=== PATIENT | female | born 1950 | race Caucasian/White ===

== ENCOUNTER 2018-11-02 19:43 | Emergency (ER) | payer MEDICARE, OTHER ==
--- NOTE | 2018-11-02 20:03 | ERPHSYRPT ---
- History of Present Illness Time Seen by Provider: 11/02/18 20:00 Source: patient, family Exam Limitations: no limitations Physician History: pt tripped on rug and struck right face on door facing no LOC no blood thinners ; no neuro deficits; mild lac at right cheek Occurred: just prior to arrival Severity: moderate Head Injury Location: frontal Method of Injury: fell Loss of Consciousness: no loss of consciousness Associated Symptoms: denies symptoms Allergies/Adverse Reactions: latex Allergy (Mild, Verified 11/02/18 20:03) redness levofloxacin [From Levaquin] Adverse Reaction (Mild, Verified 11/02/18 20:03) Itching Home Medications: Aspirin 81 mg PO DAILY 04/19/12 [History] Metoprolol Tartrate 04/19/12 [History] Multivitamin 04/19/12 [History] Novolog 04/19/12 [History] Hx Tetanus, Diphtheria Vaccination/Date Given: No Hx Influenza Vaccination/Date Given: No Hx Pneumococcal Vaccination/Date Given: No - Review of Systems Constitutional: No Fever, No Chills Eyes: No Symptoms Ears, Nose, & Throat: No Symptoms Respiratory: No Cough, No Dyspnea Cardiac: No Chest Pain, No Edema, No Syncope Abdominal/Gastrointestinal: No Abdominal Pain, No Nausea, No Vomiting, No Diarrhea Genitourinary Symptoms: No Dysuria Musculoskeletal: No Back Pain, No Neck Pain Skin: Other (lac right cheek), No Rash Neurological: Headache, No Dizziness, No Focal Weakness, No Sensory Changes Psychological: No Symptoms Endocrine: No Symptoms All Other Systems: Reviewed and Negative - Past Medical History Pertinent Past Medical History: Yes Neurological History: No Pertinent History ENT History: No Pertinent History Cardiac History: Coronary Artery Disease, Hypertension Respiratory History: No Pertinent History, Pneumonia Endocrine Medical History: Diabetes Type II, Hypothyroidism Musculoskeletal History: Arthritis, Osteoarthritis GI Medical History: Diverticulosis Psycho-Social History: Depression Female Reproductive Disorders: Other - Past Surgical History Past Surgical History: Yes Gastrointestinal: Colon Resection, Hernia Repair Musculoskeletal: Orthopedic Surgery Female Surgical History: Other - Social History Smoking Status: Never smoker Exposure to second hand smoke: No Drug Use: none Patient Lives Alone: No - Nursing Vital Signs Nursing Vital Signs: Initial Vital Signs Temperature 97.2 F 11/02/18 19:52 Pulse Rate 77 11/02/18 19:52 Respiratory Rate 16 11/02/18 19:52 Blood Pressure 124/42 11/02/18 19:52 O2 Sat by Pulse Oximetry 99 11/02/18 19:52 Pain Scale Pain Intensity 4 - Roe Coma Score Best Eye Response (Crosby): (4) open spontaneously Best Verbal Response (Roe): (5) oriented Best Motor Response (Roe): (6) obeys commands Crosby Total: 15 - Physical Exam General Appearance: no apparent distress, alert Head Injury: lacerations (right cheek) Eye Exam: bilateral eye: PERRL, EOMI ENT Exam: airway nml Neck Exam: trachea midline, full range of motion, normal alignment, paraspinous muscle tender, No focal neuro deficit, No mid-line tenderness Cardiovascular/Respiratory Exam: chest non-tender, normal breath sounds, regular rate/rhythm Gastrointestinal/Abdominal Exam: soft, non tender, no distention Pelvic Exam: deferred Rectal Exam: deferred Back Exam: normal inspection, No vertebral tenderness Extremity Exam: non-tender, normal range of motion, normal inspection Mental Status Exam: alert, oriented x 3, cooperative Motor/Sensory Exam: no motor deficit, no sensory deficit, CN II-XII intact Skin Exam: normal color, warm, dry, No rash Procedures - Laceration/Wound Repair Right Cheek Wound Location: Right, face Wound Length (cm): 2 Wound's Depth, Shape: superficial, linear Wound Explored: no foreign body noted Irrigated: Yes Hibiclens Prep: Yes Anesthesia: local, 1% Lidocaine Volume Anesthetic (ccs): 2 Wound Debrided: minimal Wound Repaired With: sutures Suture Size/Type: 6-0, prolene Number of Sutures: 4 Layer Closure?: No Sterile Dressing Applied?: Yes Splint Applied?: No Sling Applied?: No - Course Nursing assessment & vital signs reviewed: Yes Ordered Tests: Active Orders 24 hr Category Date Time Status CERVICAL SPINE WO CONTRAST [CT] Stat Exams 11/02/18 20:04 Taken FACIAL BONES WO CONTRAST [CT] Stat Exams 11/02/18 20:04 Taken HEAD WITHOUT CONTRAST [CT] Stat Exams 11/02/18 20:03 Taken Medication Summary Discontinued Medications Generic Name Dose Route Start Last Admin Trade Name Freq PRN Reason Stop Dose Admin Diphtheria/Tetanus/Acell Pertussis 0.5 ml 11/02/18 20:05 11/02/18 20:44 Adacel Vial IM 11/02/18 20:06 Not Given .ONCE ONE - Progress Progress: improved, re-examined Progress Note: 11/02/18 22:12 pt has no symptoms after observatin in ER, discussed that there still could be evloving injury even with neg CT and pt prefers outpt f/u to admission/obs. Counseled pt/family regarding: diagnosis, need for follow-up, rad results - Departure Departure Disposition: Home Clinical Impression: concussion with lac, contusion right face Condition: Good Critical Care Time: No Referrals: CARMINA ANDERSON MD [Primary Care Provider] - Instructions: Contusion (DC), Concussion, Adult (DC), Laceration Repair Additional Instructions: even though the CT was OK there can still be brain swelling in the first day or so ; therefore return if any symptoms of concern. see Dr to replace stitches with steristrips in 5 days , return meantime if any concerns. apply antibiotic ointment daily. Prescriptions: Mupirocin [Bactroban OINTMENT] 22 gm TP DAILY #1 tube
[2018-11-02] MEDS ORDERED: Adacel Vial IM ONE (20:05)
[2018-11-02 20:46] VITALS: BP 124/75; PULSE 74; O2SAT 96
--- NOTE | 2018-11-03 07:21 | XRAY ---
Indication: Right face injury following fall. Multiple contiguous axial images obtained through the head without contrast. Comparison: None Age-appropriate global atrophy and mild periventricular degenerative micro-ischemia bilaterally. No acute intracranial hemorrhage, abnormal extra-axial fluid collection, or mass effect. Fourth ventricle is midline without hydrocephalus. Bony calvarium intact. Mild anterior right temporal scalp hematoma. Impression: Right temporal scalp hematoma. Nonacute senile brain. Comment: Preliminary interpretation was made by [facility]. No discrepancy. CTDI 47.12
--- NOTE | 2018-11-03 07:26 | XRAY ---
Indication: Right face injury following fall. Multiple contiguous axial images obtained through the facial bones. Sagittal and coronal reformatted images obtained. Comparison: None There are multiple bilateral dental amalgams producing beam artifact limiting these levels. Moderate right facial and lesser degree right temporal soft tissue swelling. No acute fracture, suspicious bone lesions, or radiopaque foreign body. Orbits including roof, briceno, and floors intact. Paranasal sinuses and nasal passages are clear. Mild nasal septal deviation to the right. Visualized noncontrasted soft tissues unremarkable. CT head and CT cervical spine reported separately. Impression: Right face and right temporal soft tissue swelling. Negative acute fracture. Comment: Preliminary interpretation was made by [facility]. No discrepancy. CTDI 59.47
--- NOTE | 2018-11-03 07:30 | XRAY ---
Indication: Neck pain following fall. Multiple contiguous axial images obtained through the cervical spine. Sagittal and coronal reformatted images obtained. Comparison: None Axial images negative for acute fracture, suspicious bony lesions, or spinal canal stenosis. Mild/moderate multilevel anterior and posterior endplate spurring. Also mild atlantoaxial degenerative arthropathy and mild multilevel bilateral degenerative facet hypertrophy. Sagittal and coronal reformatted images demonstrate normal alignment. Mild/moderate C4-C7 disc space narrowing. No acute compression fracture, subluxation, or jump facet. Normal appearing craniocervical junction. Visualized noncontrasted soft tissues including lung apices unremarkable. Impression: 1. Negative acute fracture/subluxation. 2. Multilevel degenerative changes. Comment: Preliminary interpretation was made by [facility]. No discrepancy. CTDI 74.18
== END 2018-11-02 22:26 | disposition home or self-care (01) ==
LOC: ED 19:43
DX: S06.0X0A Concussion without loss of consciousness, initial encounter (principal); W01.198A Fall on same level from slipping, tripping and stumbling with subsequent striking against other object, initial encounter; S01.411A Laceration without foreign body of right cheek and temporomandibular area, initial encounter; I25.10 Atherosclerotic heart disease of native coronary artery without angina pectoris; I10 Essential (primary) hypertension; E11.9 Type 2 diabetes mellitus without complications; E03.9 Hypothyroidism, unspecified; M19.90 Unspecified osteoarthritis, unspecified site; F32.9 Major depressive disorder, single episode, unspecified
CPT/HCPCS: 12011; 70450; 70486; 72125; 99284

== ENCOUNTER 2021-05-25 08:45 | Day surgery (SDC) | payer MEDICARE ==
[2012-04-19 21:09] VITALS: BP 117/60
[2021-05-25] MEDS ORDERED: LIDOCAINE HCL 2% 100 MG/5 ML IJ ONE (08:46)
[2021-05-25] MEDS ORDERED: Lactated Ringers 1,000 ML IV ONE (10:12)
[2021-05-25] MEDS ORDERED: DIPRIVAN 200 MG/20 ML IV ONE (10:21)
--- NOTE | 2021-05-25 11:36 | XRAY ---
Indication: Bilateral L4-S1 MBB. Intraoperative fluoroscopy provided for 13 seconds. Single digital spot image submitted for interpretation demonstrates posterior needle tips projecting over the expected left and right L4-S1 nerve roots. Correlate with intraoperative findings/report.
--- NOTE | 2021-05-25 11:43 | XRAY ---
13 seconds of fluoroscopy was used in surgery for a bilateral L4-S1 MBB.
== END 2021-05-25 10:50 | disposition home or self-care (01) ==
LOC: SDC-PAIN 08:45
PROVIDERS: ATTEND Psychiatry & Neurology Pain Medicine
DX: M47.816 Spondylosis without myelopathy or radiculopathy, lumbar region (principal); E11.9 Type 2 diabetes mellitus without complications; Z79.899 Other long term (current) drug therapy
CPT/HCPCS: 64493; 64494; 72020; 77002; 82947; J2704

== ENCOUNTER 2023-12-19 10:00 | Observation (INO) | payer MEDICARE ==
--- NOTE | 2023-12-19 10:12 | ERPHSYRPT ---
- History of Present Illness Time Seen by Provider: 12/19/23 10:00 Source: EMS Exam Limitations: clinical condition Physician History: Pt was brought in by EMS choking on a piece of pork. Pt unresponsive. Allergies/Adverse Reactions: latex Allergy (Mild, Verified 12/19/23 10:21) redness levofloxacin [From Levaquin] Adverse Reaction (Mild, Verified 12/19/23 10:21) Itching Home Medications: ARIPiprazole [Aripiprazole] 1 tab PO DAILY 12/19/23 [History] Chlorthalidone 1 tab PO DAILY 12/19/23 [History] Cholecalciferol (Vitd3)/Vit K2 [K2-D3 5000 90-125 Mcg Capsule] 1 tab PO DAILY 12/19/23 [History] Duloxetine HCl 1 tab PO DAILY 12/19/23 [History] Duloxetine HCl 30 mg [Cymbalta 30 MG Capsule] 1 tab PO DAILY 12/19/23 [History] Insulin Glargine,Hum.rec.anlog [Basaglar Kwikpen U-100] 70 units SQ DAILY [History] Insulin Lispro [Humalog] 30 units SQ AC 12/19/23 [History] Levothyroxine Sodium 1 tab PO DAILY 12/19/23 [History] Magnesium Oxide [Magnesium] 1 tab PO DAILY 12/19/23 [History] Meclizine HCl 25 mg [Antivert 25 mg] 1 tab PO TID PRN 12/19/23 [History] Oxybutynin Chloride [Oxybutynin Chloride ER] 1 tab PO DAILY 12/19/23 [History] PANTOPRAZOLE 40 mg Tablet [Protonix 40MG Tablet] 1 tab PO DAILY 12/19/23 [History] Semaglutide [Ozempic] 1.5 mg SQ WEEKLY 12/19/23 [History] Simvastatin 20Mg [Zocor 20Mg] 1 tab PO HS 12/19/23 [History] Verapamil HCl [Verapamil ER] 1 tab PO DAILY 12/19/23 [History] Hx Tetanus, Diphtheria Vaccination/Date Given: No Hx Influenza Vaccination/Date Given: No Hx Pneumococcal Vaccination/Date Given: No - Review of Systems All Other Systems: Unable due to condition - Past Medical History Pertinent Past Medical History: Yes Neurological History: TIA ENT History: No Pertinent History Cardiac History: Angina, High Cholesterol, Hypertension, Other Respiratory History: Sleep Apnea Endocrine Medical History: Diabetes Type II, Hypothyroidism, Other Musculoskeletal History: Osteoarthritis GI Medical History: Diverticulosis Psycho-Social History: Depression Female Reproductive Disorders: Other Other Medical History: depression, anxiety, GERD, Emily's, B TKR (09/2011 and 02/2012), heel spur removal (unsure of which side, 06/2011), cholecystectomy with complication of bowel fistula, abdominal hernia repair x7 - Past Surgical History Past Surgical History: Yes Gastrointestinal: Colon Resection, Hernia Repair Musculoskeletal: Orthopedic Surgery Female Surgical History: Other Other Surgical History: bilat total knee - Social History Smoking Status: Never smoker Exposure to second hand smoke: No Drug Use: none Patient Lives Alone: No - Nursing Vital Signs Nursing Vital Signs: Initial Vital Signs Temperature 97.5 F 12/19/23 10:00 Pulse Rate 147 H 12/19/23 10:00 Respiratory Rate 25 H 12/19/23 10:00 Blood Pressure 160/113 12/19/23 10:00 O2 Sat by Pulse Oximetry 94 L 12/19/23 10:00 Pain Scale Pain Intensity 5 - Physical Exam General Appearance: alert Eye Exam: PERRL/EOMI Ears, Nose, Throat Exam: pharyngeal erythema (mild; Foreign body in trachea.) Neck Exam: normal inspection Respiratory Exam: diminished breath sounds Cardiovascular/Chest Exam: tachycardia Abdominal/Gastrointestinal Exam: normal bowel sounds Extremity Exam: No pedal edema Peripheral Pulses Exam: dorsalis-pedis (R): 2+, dorsalis-pedis (L): 2+ Neurologic Exam: other (unresponsive) Skin Exam: mottled SpO2 Interpretation: O2 applied SpO2: 94 O2 Delivery: Non-rebreather Procedures - Additional Procedures Progress: Laryngoscope used with visualization of piece of meat with airway obstruction. Large piece of meat removed with suction and Zan forceps. After removal and NRB oxygen pt's color improved. - Course EKG Interpreted by Me: RATE (131), Left [employer] Deviation, Left Bundle Branch Block, Other (QTc = 470) - CT Exams Head CT Interpretation: Discussed w/radiologist (Again nonacute senile brain.) Chest CT Interpretation: Negative (Negative pulmonary embolus. No acute cardiopulmonary abnormalities. See rest of report.) Ordered Tests: Active Orders 24 hr Category Date Time Status Material Distributor STAT Care 12/19/23 10:13 Active EKG-ER Only STAT Care 12/19/23 10:11 Active EKG-ER Only STAT Care 12/19/23 14:16 Active IV Insertion STAT Care 12/19/23 10:11 Active NPO (ED) STAT Care 12/19/23 11:48 Active Oxygen-ED Only NON-REBREATHER 100% Care 12/19/23 10:11 Active POCT Glucose Check STAT Care 12/19/23 11:48 Active CHEST WITH CONTRAST [CT] Stat Exams 12/19/23 10:13 Completed HEAD WITHOUT CONTRAST [CT] Stat Exams 12/19/23 10:15 Completed AMYLASE Stat Lab 12/19/23 10:33 Completed BLOOD CULTURE Stat Lab 12/19/23 10:17 Received BMP Stat Lab 12/19/23 13:32 Completed CBC W DIFF Stat Lab 12/19/23 10:33 Completed CBC W DIFF Stat Lab 12/19/23 13:32 Results CMP Stat Lab 12/19/23 10:33 Completed CULTURE,SPUTUM Stat Lab 12/19/23 10:17 Ordered CULTURE,URINE Stat Lab 12/19/23 12:04 Received LIPASE Stat Lab 12/19/23 10:33 Completed Lactic Acid Stat Lab 12/19/23 10:11 Completed Lactic Acid Stat Lab 12/19/23 12:40 Completed MAGNESIUM Stat Lab 12/19/23 10:33 Completed Manual Differential NC Stat Lab 12/19/23 10:33 Completed Manual Differential NC Stat Lab 12/19/23 13:32 Results NT PRO BNPII Stat Lab 12/19/23 10:33 Completed POCT GLUCOSE Stat Lab 12/19/23 12:09 Completed Pathologist Review Stat Lab 12/19/23 13:32 Results TROPONIN Q4H Lab 12/19/23 10:33 Completed TROPONIN Q4H Lab 12/19/23 13:32 Completed TROPONIN Q4H Lab 12/19/23 18:15 Ordered UA W/RFX UR CULTURE Stat Lab 12/19/23 12:04 Completed VENOUS BLOOD GAS Stat Lab 12/19/23 10:13 Completed Medication Summary Discontinued Medications Generic Name Dose Route Start Last Admin Trade Name Freq PRN Reason Stop Dose Admin Sodium Chloride 1,000 mls @ 999 mls/hr 12/19/23 10:11 12/19/23 11:25 Sodium Chloride 0.9% 1000 Ml IV 12/19/23 11:11 Infused .Q1H1M STA Infusion Ceftriaxone Sodium 1 gm in 100 mls @ 200 mls/hr 12/19/23 10:11 12/19/23 11:16 Rocephin 1 Gm / 100 Ml Nacl IV 12/19/23 10:40 Infused STAT ONE Infusion Azithromycin 500 mg in 250 mls @ 250 mls/hr 12/19/23 10:11 12/19/23 13:08 Zithromax 500 Mg/ 250 Ml Nacl Premix IV 12/19/23 11:10 Infused STAT STA Infusion Sodium Chloride Confirm 12/19/23 10:17 Sodium Chloride 0.9% 1000 Ml Administered 12/19/23 10:18 Dose 1,000 mls @ ud .ROUTE .STK-MED ONE Ceftriaxone Sodium Confirm 12/19/23 10:17 Rocephin 1 Gm / 100 Ml Nacl Administered 12/19/23 10:18 Dose 1 gm in 100 mls @ ud IV .STK-MED ONE Sodium Chloride 1,000 mls @ 999 mls/hr 12/19/23 10:45 12/19/23 13:08 Sodium Chloride 0.9% 1000 Ml IV 12/19/23 11:45 Infused .Q1H1M STA Infusion Azithromycin Confirm 12/19/23 11:35 Zithromax 500 Mg/ 250 Ml Nacl Premix Administered 12/19/23 11:36 Dose 500 mg in 250 mls @ ud IV .STK-MED ONE Sodium Chloride Confirm 12/19/23 11:35 Sodium Chloride 0.9% 1000 Ml Administered 12/19/23 11:36 Dose 1,000 mls @ ud .ROUTE .STK-MED ONE Insulin Human Regular 10 unit 12/19/23 10:35 12/19/23 10:58 Insulin Regular, Human 1 Unit IV 12/19/23 10:36 10 unit STAT ONE Administration Insulin Human Regular Confirm 12/19/23 10:54 Insulin Regular, Human 1 Unit Administered 12/19/23 10:55 Dose 10 unit .ROUTE .STK-MED ONE Insulin Human Regular 5 unit 12/19/23 12:10 12/19/23 12:17 Insulin Regular, Human 1 Unit IV 12/19/23 12:11 5 unit STAT ONE Administration Insulin Human Regular Confirm 12/19/23 12:16 Insulin Regular, Human 1 Unit Administered 12/19/23 12:17 Dose 5 unit .ROUTE .[facility]-MED ONE Lab/Rad Data: Laboratory Result Diagrams 12/19/23 13:32 12/19/23 13:32 Laboratory Results 12/19/23 12/19/23 12/19/23 Range/Units 13:32 13:32 13:32 WBC 27.5 H* (3.98-10.04) x10^3/uL RBC 3.75 L (3.93-5.22) x10^6/uL Hgb 10.8 L (11.2-15.7) g/dL Hct 32.4 L (34.1-44.9) % MCV 86.4 (79.4-94.8) fL MCH 28.8 (25.6-32.2) pg MCHC 33.3 (32.2-35.5) g/dL RDW 13.1 (11.7-14.4) % Plt Count 324 (182-369) x10^3/uL MPV 8.2 L (9.4-12.3) fL Segmented Neutrophils 90 H (1.56-6.13) % Band Neutrophils (0.0-2.0) % Lymphocytes (Manual) 6 L (24-44) % Monocytes (Manual) 3 (0.0-12.0) % Eosinophils (Manual) 1 (0.00-3.0) % Toxic Granulation 1+ Platelet Estimate NORMAL (NORMAL) RBC Morphology NORMAL Smear Path Review Pending pO2/FiO2 Ratio % VBG pH (7.32-7.42) VBG pCO2 at Pat Temp (42-55) mm/Hg VBG pO2 at Pat Temp (25-40) mm/Hg VBG HCO3 (22-28) meq/L VBG O2 Sat (Muna) (95-100) VBG Base Excess (-2.0-2.0) VBG Hemoglobin VBG Carboxyhemoglobin (0.0-6.9) % T HGB POC Potassium (3.5-5.1) Sodium 135 (135-145) mmol/L Potassium 4.0 (3.5-5.1) mmol/L Chloride 103 (98-107) mmol/L Carbon Dioxide 23 (22-30) mmol/L Anion Gap 12.6 (5-15) MEQ/L BUN 17 (7-17) mg/dL Creatinine 0.61 (0.52-1.04) mg/dL Estimated GFR 95.5 ML/MIN Glucose 275 H (74-106) mg/dL POC Glucometer (74 to 106) mg/dL Lactic Acid (0.4-2.0) Calcium 8.4 D (8.4-10.2) mg/dL Magnesium (1.6-2.3) mg/dL Total Bilirubin (0.2-1.3) mg/dL AST (14-36) U/L ALT (0-35) U/L Alkaline Phosphatase (38-126) U/L Troponin I 0.364 H* (0.000-0.033) ng/mL NT-Pro-B Natriuret Pep (<300) pg/mL Serum Total Protein (6.3-8.2) g/dL Albumin (3.5-5.0) g/dL Amylase (30-110) U/L Lipase (23-300) U/L Urine Color (Yellow) Urine Appearance (Clear) Urine pH (4.6-8.0) Ur Specific Cades (1.005-1.030) Urine Protein (Negative) Urine Glucose (UA) (Negative) mg/dL Urine Ketones (Negative) Urine Blood (Negative) Urine Nitrite (Negative) Urine Bilirubin (Negative) Urine Urobilinogen (0.2) mg/dL Ur Leukocyte Esterase (Negative) U Hyaline Cast (Auto) (0-2) /LPF Urine Microscopic RBC (0-5) /HPF Urine Microscopic WBC (0-5) /HPF Ur Epithelial Cells (None Seen) /HPF Urine Bacteria (None Seen) /HPF Urine Culture Reflexed (NO) Influenza Type A Ag (NEGATIVE) Influenza Type B Ag (NEGATIVE) RSV (PCR) (NEGATIVE) SARS-CoV-2 (PCR) (NEGATIVE) 12/19/23 12/19/23 12/19/23 Range/Units 12:40 12:09 12:04 WBC (3.98-10.04) x10^3/uL RBC (3.93-5.22) x10^6/uL Hgb (11.2-15.7) g/dL Hct (34.1-44.9) % MCV (79.4-94.8) fL MCH (25.6-32.2) pg MCHC (32.2-35.5) g/dL RDW (11.7-14.4) % Plt Count (182-369) x10^3/uL MPV (9.4-12.3) fL Segmented Neutrophils (1.56-6.13) % Band Neutrophils (0.0-2.0) % Lymphocytes (Manual) (24-44) % Monocytes (Manual) (0.0-12.0) % Eosinophils (Manual) (0.00-3.0) % Toxic Granulation Platelet Estimate (NORMAL) RBC Morphology Smear Path Review pO2/FiO2 Ratio % VBG pH (7.32-7.42) VBG pCO2 at Pat Temp (42-55) mm/Hg VBG pO2 at Pat Temp (25-40) mm/Hg VBG HCO3 (22-28) meq/L VBG O2 Sat (Muna) (95-100) VBG Base Excess (-2.0-2.0) VBG Hemoglobin VBG Carboxyhemoglobin (0.0-6.9) % T HGB POC Potassium (3.5-5.1) Sodium (135-145) mmol/L Potassium (3.5-5.1) mmol/L Chloride (98-107) mmol/L Carbon Dioxide (22-30) mmol/L Anion Gap (5-15) MEQ/L BUN (7-17) mg/dL Creatinine (0.52-1.04) mg/dL Estimated GFR ML/MIN Glucose (74-106) mg/dL POC Glucometer 355 H (74 to 106) mg/dL Lactic Acid 2.7 H (0.4-2.0) Calcium (8.4-10.2) mg/dL Magnesium (1.6-2.3) mg/dL Total Bilirubin (0.2-1.3) mg/dL AST (14-36) U/L ALT (0-35) U/L Alkaline Phosphatase (38-126) U/L Troponin I (0.000-0.033) ng/mL NT-Pro-B Natriuret Pep (<300) pg/mL Serum Total Protein (6.3-8.2) g/dL Albumin (3.5-5.0) g/dL Amylase (30-110) U/L Lipase (23-300) U/L Urine Color Yellow (Yellow) Urine Appearance Clear (Clear) Urine pH 5.5 (4.6-8.0) Ur Specific Cades >=1.030 A (1.005-1.030) Urine Protein Trace A (Negative) Urine Glucose (UA) >=1000 A (Negative) mg/dL Urine Ketones Negative (Negative) Urine Blood Negative (Negative) Urine Nitrite Negative (Negative) Urine Bilirubin Negative (Negative) Urine Urobilinogen 0.2 (0.2) mg/dL Ur Leukocyte Esterase Negative (Negative) U Hyaline Cast (Auto) None Seen (0-2) /LPF Urine Microscopic RBC NONE SEEN (0-5) /HPF Urine Microscopic WBC 0-2 (0-5) /HPF Ur Epithelial Cells Few (None Seen) /HPF Urine Bacteria None Seen (None Seen) /HPF Urine Culture Reflexed YES (NO) Influenza Type A Ag (NEGATIVE) Influenza Type B Ag (NEGATIVE) RSV (PCR) (NEGATIVE) SARS-CoV-2 (PCR) (NEGATIVE) 12/19/23 12/19/23 12/19/23 Range/Units 10:33 10:33 10:33 WBC (3.98-10.04) x10^3/uL RBC (3.93-5.22) x10^6/uL Hgb (11.2-15.7) g/dL Hct (34.1-44.9) % MCV (79.4-94.8) fL MCH (25.6-32.2) pg MCHC (32.2-35.5) g/dL RDW (11.7-14.4) % Plt Count (182-369) x10^3/uL MPV (9.4-12.3) fL Segmented Neutrophils (1.56-6.13) % Band Neutrophils (0.0-2.0) % Lymphocytes (Manual) (24-44) % Monocytes (Manual) (0.0-12.0) % Eosinophils (Manual) (0.00-3.0) % Toxic Granulation Platelet Estimate (NORMAL) RBC Morphology Smear Path Review pO2/FiO2 Ratio % VBG pH (7.32-7.42) VBG pCO2 at Pat Temp (42-55) mm/Hg VBG pO2 at Pat Temp (25-40) mm/Hg VBG HCO3 (22-28) meq/L VBG O2 Sat (Muna) (95-100) VBG Base Excess (-2.0-2.0) VBG Hemoglobin VBG Carboxyhemoglobin (0.0-6.9) % T HGB POC Potassium (3.5-5.1) Sodium 130 L (135-145) mmol/L Potassium 4.6 (3.5-5.1) mmol/L Chloride 94 L (98-107) mmol/L Carbon Dioxide 17 L (22-30) mmol/L Anion Gap 23.3 H (5-15) MEQ/L BUN 19 H (7-17) mg/dL Creatinine 0.88 (0.52-1.04) mg/dL Estimated GFR 70.2 ML/MIN Glucose 572 H* (74-106) mg/dL POC Glucometer (74 to 106) mg/dL Lactic Acid (0.4-2.0) Calcium 9.9 (8.4-10.2) mg/dL Magnesium 2.0 (1.6-2.3) mg/dL Total Bilirubin 0.40 (0.2-1.3) mg/dL AST 58 H (14-36) U/L ALT 58 H (0-35) U/L Alkaline Phosphatase 148 H (38-126) U/L Troponin I 0.024 (0.000-0.033) ng/mL NT-Pro-B Natriuret Pep 159 (<300) pg/mL Serum Total Protein 7.7 (6.3-8.2) g/dL Albumin 4.3 (3.5-5.0) g/dL Amylase 82 (30-110) U/L Lipase 107 (23-300) U/L Urine Color (Yellow) Urine Appearance (Clear) Urine pH (4.6-8.0) Ur Specific Cades (1.005-1.030) Urine Protein (Negative) Urine Glucose (UA) (Negative) mg/dL Urine Ketones (Negative) Urine Blood (Negative) Urine Nitrite (Negative) Urine Bilirubin (Negative) Urine Urobilinogen (0.2) mg/dL Ur Leukocyte Esterase (Negative) U Hyaline Cast (Auto) (0-2) /LPF Urine Microscopic RBC (0-5) /HPF Urine Microscopic WBC (0-5) /HPF Ur Epithelial Cells (None Seen) /HPF Urine Bacteria (None Seen) /HPF Urine Culture Reflexed (NO) Influenza Type A Ag NEGATIVE (NEGATIVE) Influenza Type B Ag NEGATIVE (NEGATIVE) RSV (PCR) NEGATIVE (NEGATIVE) SARS-CoV-2 (PCR) NEGATIVE (NEGATIVE) 12/19/23 12/19/23 12/19/23 Range/Units 10:33 10:13 10:11 WBC 23.1 H (3.98-10.04) x10^3/uL RBC 4.52 (3.93-5.22) x10^6/uL Hgb 13.0 (11.2-15.7) g/dL Hct 41.1 (34.1-44.9) % MCV 90.9 (79.4-94.8) fL MCH 28.8 (25.6-32.2) pg MCHC 31.6 L (32.2-35.5) g/dL RDW 13.0 (11.7-14.4) % Plt Count 464 H (182-369) x10^3/uL MPV 8.5 L (9.4-12.3) fL Segmented Neutrophils 78 H (1.56-6.13) % Band Neutrophils 1 (0.0-2.0) % Lymphocytes (Manual) 21 L (24-44) % Monocytes (Manual) (0.0-12.0) % Eosinophils (Manual) (0.00-3.0) % Toxic Granulation 1+ Platelet Estimate INCREASED (NORMAL) RBC Morphology Smear Path Review pO2/FiO2 Ratio 36.0 % VBG pH 7.32 (7.32-7.42) VBG pCO2 at Pat Temp 36 L (42-55) mm/Hg VBG pO2 at Pat Temp 53 H (25-40) mm/Hg VBG HCO3 18.5 L (22-28) meq/L VBG O2 Sat (Muna) 84.9 L (95-100) VBG Base Excess -6.9 L (-2.0-2.0) VBG Hemoglobin 13.8 VBG Carboxyhemoglobin 2.8 (0.0-6.9) % T HGB POC Potassium 4.8 (3.5-5.1) Sodium (135-145) mmol/L Potassium (3.5-5.1) mmol/L Chloride (98-107) mmol/L Carbon Dioxide (22-30) mmol/L Anion Gap (5-15) MEQ/L BUN (7-17) mg/dL Creatinine (0.52-1.04) mg/dL Estimated GFR ML/MIN Glucose (74-106) mg/dL POC Glucometer (74 to 106) mg/dL Lactic Acid 8.4 H (0.4-2.0) Calcium (8.4-10.2) mg/dL Magnesium (1.6-2.3) mg/dL Total Bilirubin (0.2-1.3) mg/dL AST (14-36) U/L ALT (0-35) U/L Alkaline Phosphatase (38-126) U/L Troponin I (0.000-0.033) ng/mL NT-Pro-B Natriuret Pep (<300) pg/mL Serum Total Protein (6.3-8.2) g/dL Albumin (3.5-5.0) g/dL Amylase (30-110) U/L Lipase (23-300) U/L Urine Color (Yellow) Urine Appearance (Clear) Urine pH (4.6-8.0) Ur Specific Cades (1.005-1.030) Urine Protein (Negative) Urine Glucose (UA) (Negative) mg/dL Urine Ketones (Negative) Urine Blood (Negative) Urine Nitrite (Negative) Urine Bilirubin (Negative) Urine Urobilinogen (0.2) mg/dL Ur Leukocyte Esterase (Negative) U Hyaline Cast (Auto) (0-2) /LPF Urine Microscopic RBC (0-5) /HPF Urine Microscopic WBC (0-5) /HPF Ur Epithelial Cells (None Seen) /HPF Urine Bacteria (None Seen) /HPF Urine Culture Reflexed (NO) Influenza Type A Ag (NEGATIVE) Influenza Type B Ag (NEGATIVE) RSV (PCR) (NEGATIVE) SARS-CoV-2 (PCR) (NEGATIVE) - Progress Progress: improved Progress Note: 12/19/23 12:08 Pt examined @ 1201: lungs clear, no cardiac rub, abdominal B.S. normal, pulses 2+ upper and 1+ lower, skin cool & dry, capillary refill 3 seconds for all extremities, alert & cooperative. V.S. @ 1207: T=96.9, P=110, R=24, EH=604/78, [id number]=26% on room air. 12/19/23 14:54 EKG @ 1425: cqns=970, Sinus tachycardia, LAD, LJt=692. Discussed with : Flavio (Spoke with & discussed pt with Dr. Parker([id number]) - obs) Will see patient in: hospital (observation) Counseled pt/family regarding: lab results, diagnosis, rad results Medical Desision Making - Diagnostic Testing Diagnostic test were ordered, analyzed, and reviewed by me: Yes Radiological Interpretation: Discussed w/ radiologist - Departure Departure Disposition: Observation Clinical Impression: Sepsis, Trachea Foreign Body Removal, Respiratory distress, Tachycardia, Leukocytosis, Elevated troponin Condition: Stable Critical Care Time: Yes Critical Care Time(excluding separately billable procedures): Critical 30-74 mins Referrals: LAWRENCE ORELLANA, CIRCULAR SAW OPERATOR [Primary Care Provider] - Follow up/PCP as directed
[2023-12-19] MEDS ORDERED: Sodium Chloride 0.9% 1000 ML 1,000 ML ONE ×2 (10:17→11:35)
[2023-12-19] MEDS ORDERED: ROCEPHIN 1 GM / 100 ML NaCl 1 GM/100 ML IVPB IV ONE (10:17)
[2023-12-19] MEDS: Sodium Chloride 0.9% 1000 ML 1,000 ML IV STA ×2 (10:18→11:36)
[2023-12-19 10:38] LABS: VBG BASE EXCESS -6.9 (-2.0-2.0); VBG CARBOXYHEMOGLOBIN 2.8 % T HGB (0.0-6.9); VBG HCO3- 18.5 meq/L (22-28); VBG HEMOGLOBIN 13.8; VBG O2 SATURATION 84.9 (95-100); VBG POTASSIUM 4.8 (3.5-5.1); VBG pH 7.32 (7.32-7.42)
[2023-12-19 10:38] LABS: Hematocrit 41.1 % (34.1-44.9); Mean Cell Volume 90.9 fL (79.4-94.8); Mean Corpuscular Hemoglobin 28.8 pg (25.6-32.2); Mean Corpuscular Hgb Concent. 31.6 g/dL (32.2-35.5); Mean Platelet Volume 8.5 fL (9.4-12.3); Platelet Count 464 x10^3/uL (182-369); Red Blood Count 4.52 x10^6/uL (3.93-5.22); White Blood Count 23.1 x10^3/uL (3.98-10.04)
[2023-12-19] MEDS: ROCEPHIN 1 GM / 100 ML NaCl 1 GM/100 ML IVPB IV ONE (10:38)
[2023-12-19] MEDS ORDERED: HUMULIN R ONE ×2 (10:54→12:16)
[2023-12-19] MEDS: HUMULIN R IV ONE ×2 (10:58→12:17)
[2023-12-19 10:59] LABS: BAND 1 % (0.0-2.0); Lymphocytes 21 % (24-44); Neutrophils 78 % (1.56-6.13); Total Cells Counted 100; Toxic Granulation 1+
[2023-12-19 11:00] LABS: Platelet Estimate INCREASED (NORMAL)
[2023-12-19 11:02] LABS: ALBUMIN 4.3 g/dL (3.5-5.0); ANION GAP 23.3 MEQ/L (5-15); BILIRUBIN,TOTAL 0.4 mg/dL (0.2-1.3); Calcium 9.9 mg/dL (8.4-10.2); Creatinine 1 0.88 mg/dL (0.52-1.04); EST GLOMERULAR FILTRATION RATE 70.2 ML/MIN; Potassium 4.6 mmol/L (3.5-5.1); Total Protein 7.7 g/dL (6.3-8.2)
[2023-12-19 11:19] LABS: INFLUENZA A NEGATIVE (NEGATIVE); INFLUENZA B NEGATIVE (NEGATIVE); RESPIRATORY SYNCTIAL VIRUS NEGATIVE (NEGATIVE); SARS-CoV-2 Xpert Express NEGATIVE (NEGATIVE)
[2023-12-19] MEDS ORDERED: Zithromax 500 MG/ 250 ML NaCl Premix 500 MG/250 ML IVPB IV ONE (11:35)
[2023-12-19] MEDS: Zithromax 500 MG/ 250 ML NaCl Premix 500 MG/250 ML IVPB IV STA (11:36)
--- NOTE | 2023-12-19 12:18 | XRAY ---
Indication: Altered mental status. History TIA. Multiple contiguous axial images obtained through the head without contrast. Comparison: November 02, 2018. Again age-appropriate global atrophy with progressive worsening moderate periventricular degenerative micro-ischemia bilaterally. No acute intracranial hemorrhage, abnormal extra-axial fluid collection, or mass effect. Fourth ventricle is midline without hydrocephalus. Bony calvarium intact. Visualized paranasal sinuses and mastoid air cells are clear. Impression: Again nonacute senile brain.
[2023-12-19 12:27] LABS: ADD URINE CULTURE? YES (NO); Appearance Clear (Clear); Bacteria None Seen /HPF (None Seen); Bilirubin Negative (Negative); Blood Negative (Negative); Epithelial Cells Few /HPF (None Seen); Glucose, Urine >=1000 mg/dL (Negative); Hyaline Casts None Seen /LPF (0-2); Ketones Negative (Negative); Leukocyte Esterase Negative (Negative); Nitrite Negative (Negative); Ph 5.5 (4.6-8.0); Protein,Urine Dip Trace (Negative); RBC NONE SEEN /HPF (0-5); Specific Gravity >=1.030 (1.005-1.030); Urobilinogen 0.2 mg/dL (0.2); WBC 0-2 /HPF (0-5)
--- NOTE | 2023-12-19 12:32 | XRAY ---
Indication: Short of breath. Choking. Status post CPR. Multiple contiguous axial images obtained through the chest using 80 cc Isovue 370 contrast and PE protocol. Comparison: None Good opacification pulmonary arteries to include the lobar and segmental branches. No pulmonary embolus. Heart not enlarged. Aorta minimally arteriosclerotic without aneurysm/dissection. Small mediastinal and left hilar calcified nodes. No pathologic mediastinal/hilar lymphadenopathy. Lungs demonstrates bibasilar subsegmental atelectasis/scarring and chunky left upper lobe calcified granuloma. No suspicious pulmonary mass/nodule, infiltrate, effusion, or pneumothorax. Bony thorax demonstrates osteopenia, moderate multilevel degenerative spondylosis, old right 6-8 lateral rib fractures, and old right humeral head fracture with displaced fracture fragment.. Limited upper abdomen demonstrates fatty liver. Impression: 1. Negative pulmonary embolus. No acute cardiopulmonary abnormalities. 2. Chronic findings including arteriosclerotic disease, fatty liver, chronic bony findings, and old granulomatous disease.
[2023-12-19 13:38] LABS: Hematocrit 32.4 % (34.1-44.9); Hemoglobin 10.8 g/dL (11.2-15.7); Mean Cell Volume 86.4 fL (79.4-94.8); Mean Corpuscular Hemoglobin 28.8 pg (25.6-32.2); Mean Corpuscular Hgb Concent. 33.3 g/dL (32.2-35.5); Mean Platelet Volume 8.2 fL (9.4-12.3); Platelet Count 324 x10^3/uL (182-369); Red Blood Count 3.75 x10^6/uL (3.93-5.22); Red Cell Distribution Width 13.1 % (11.7-14.4)
[2023-12-19 13:39] LABS: White Blood Count 27.5 x10^3/uL (3.98-10.04)
[2023-12-19 13:49] LABS: ANION GAP 12.6 MEQ/L (5-15); Calcium 8.4 mg/dL (8.4-10.2); Creatinine 1 0.61 mg/dL (0.52-1.04); EST GLOMERULAR FILTRATION RATE 95.5 ML/MIN
[2023-12-19 13:52] LABS: Eosinophil 1 % (0.00-3.0); Lymphocytes 6 % (24-44); Monocyte 3 % (0.0-12.0); Neutrophils 90 % (1.56-6.13); Total Cells Counted 100
[2023-12-19 13:55] LABS: Toxic Granulation 1+
[2023-12-19 13:56] LABS: Platelet Estimate NORMAL (NORMAL)
[2023-12-19] MEDS ORDERED: TYLENOL 325 MG PO PRN (17:35)
--- NOTE | 2023-12-19 17:37 | PCM.HP ---
History of Present Illness - Chief Complaint Chief Complaint: aspiration Date: 12/19/23 History of Present Illness: is a 73 year old female with PMHX of TIA, angina, congenital heart defect, hyperlipidemia, HTN, Sleep apnea, Type II DM, hypothyroidism, OA, Div erticulitis, depression, anxiety, GERD, and Colon resection. Per ER records pt was brought in unresponsive and CPR provided. She aspirated on some meat this morning. They were able to remove the meat in the ER and sxs improved and she became more responsive. Lactic acid elevated in ER and Septic. She was started on antibiotics and IV fluids. Glucose was elevated and insulin given in ER. Will continue IV antibiotics and consult cardiology, ST. Will order echo as 2nd troponin is elevated. She reports she had a left shoulder steroid injection yesterday. She reports she was told she has a left rotator cuff tear. This is the cause for her elevated glucose today she reports. She is c/o recent BLLE pitting edema with unknown cause. She reports having an EGD 2 months ago for GI bleeding and is scheduled for colonoscopy with Dr. thomas in Jan. She has had no recent dark or bloody stools. Protonix BID started. She is c/o rib pain from CPR- Ramona and tylenol ordered PRN for pain. She denies CP, SOB, abd. pain, N/V/D. / Azael - door person - Review of Systems Constitutional: No Fever, No Chills Eyes: No Symptoms Ears, Nose, & Throat: No Symptoms Respiratory: No Cough, No Short Of Breath Cardiac: Chest Pain (rib pain), Edema (BLLE), No Syncope Abdominal/Gastrointestinal: Dysphagia, No Abdominal Pain, No Nausea, No Vomiting, No Diarrhea Genitourinary Symptoms: No Dysuria Musculoskeletal: No Back Pain, No Neck Pain Skin: No Rash Neurological: No Dizziness, No Focal Weakness, No Sensory Changes Psychological: No Symptoms Endocrine: No Symptoms Hematologic/Lymphatic: No Symptoms Immunological/Allergic: No Symptoms Medications & Allergies Home Medications: Home Medication List ARIPiprazole [Aripiprazole] 1 tab PO DAILY 12/19/23 [History Confirmed 12/19/23] Chlorthalidone 1 tab PO DAILY 12/19/23 [History Confirmed 12/19/23] Cholecalciferol (Vitd3)/Vit K2 [K2-D3 5000 90-125 Mcg Capsule] 1 tab PO DAILY 12/19/23 [History Confirmed 12/19/23] Duloxetine HCl 1 tab PO DAILY 12/19/23 [History Confirmed 12/19/23] Duloxetine HCl 30 mg [Cymbalta 30 MG Capsule] 1 tab PO DAILY 12/19/23 [History Confirmed 12/19/23] Insulin Glargine,Hum.rec.anlog [Basaglar Kwikpen U-100] 70 units SQ DAILY 12/19/23 [History Confirmed 12/19/23] Insulin Lispro [Humalog] 30 units SQ AC 12/19/23 [History Confirmed 12/19/23] Levothyroxine Sodium 1 tab PO DAILY 12/19/23 [History Confirmed 12/19/23] Magnesium Oxide [Magnesium] 1 tab PO DAILY 12/19/23 [History Confirmed 12/19/23] Meclizine HCl 25 mg [Antivert 25 mg] 1 tab PO TID PRN 12/19/23 [History Confirmed 12/19/23] Oxybutynin Chloride [Oxybutynin Chloride ER] 1 tab PO DAILY 12/19/23 [History Confirmed 12/19/23] PANTOPRAZOLE 40 mg Tablet [Protonix 40MG Tablet] 1 tab PO DAILY 12/19/23 [History Confirmed 12/19/23] Semaglutide [Ozempic] 1.5 mg SQ WEEKLY 12/19/23 [History Confirmed 12/19/23] Simvastatin 20Mg [Zocor 20Mg] 1 tab PO HS 12/19/23 [History Confirmed 12/19/23] Verapamil HCl [Verapamil ER] 1 tab PO DAILY 12/19/23 [History Confirmed 12/19/23] Allergies/Adverse Reactions: Allergies Allergy/AdvReac Type Severity Reaction Status Date / Time latex Allergy Mild redness Verified 12/19/23 10:21 levofloxacin [From Levaquin] AdvReac Mild Itching Verified 12/19/23 10:21 - Past Medical History Past Medical History: Yes Neurological History: TIA ENT History: No Pertinent History Cardiac History: Angina, High Cholesterol, Hypertension, Other Respiratory History: Sleep Apnea Endocrine Medical History: Diabetes Type II, Hypothyroidism, Other Musculoskelatal History: Osteoarthritis GI Medical History: Diverticulosis, GERD Pyscho-Social History: Anxiety, Depression Reproductive Disorders: Other Comment: Emily's, B TKR (09/2011 and 02/2012), heel spur removal (unsure of which side, 06/2011), - Past Surgical History Past Surgical History: Yes Neuro Surgical History: No Pertinent History Respiratory Surgery: No Pertinent History GI Surgical History: Cholecystectomy, Colon Resection, Hernia Repair Musculskeletal Surgical Hx: Orthopedic Surgery Female Surgical History: Other Other Surgical History: bilat total knee, heel spur removed, cholecystectomy with complication of bowel fistula, colon resection x2, abdominal hernia repair x7 - Social History Smoking Status: Never smoker Exposure to second hand smoke: No Alcohol: None Drug Use: none - Social Determinants of Health Will the patient participate in the screening: Unable to obtain - Physical Exam Vital Signs: Vital Signs - 24 hr Temp Pulse Resp BP BP Pulse Ox 12/19/23 16:20 112 H 18 145/86 94 L 12/19/23 16:10 112 H 19 135/80 94 L 12/19/23 16:00 109 H 24 133/81 95 12/19/23 15:50 112 H 20 131/80 95 12/19/23 15:40 108 H 20 132/81 96 12/19/23 15:30 108 H 21 129/75 12/19/23 15:20 108 H 14 114/57 87 L 12/19/23 15:10 109 H 24 141/82 98 12/19/23 15:08 94 L 12/19/23 15:00 107 H 21 120/78 93 L 12/19/23 14:50 109 H 37 H 134/79 95 12/19/23 14:40 112 H 19 140/78 91 L 12/19/23 14:30 108 H 14 135/81 93 L 12/19/23 14:20 108 H 17 137/86 94 L 12/19/23 14:10 109 H 20 143/86 92 L 12/19/23 14:00 108 H 22 124/78 91 L 12/19/23 13:50 110 H 19 138/74 90 L 12/19/23 13:40 106 H 22 111/65 95 12/19/23 13:39 106 H 11 L 94 L 12/19/23 13:32 108 H 0 L 92 L 12/19/23 13:20 103 H 10 L 122/76 95 12/19/23 13:10 103 H 19 117/70 96 12/19/23 13:00 104 H 18 114/72 96 12/19/23 12:50 104 H 15 108/71 92 L 12/19/23 12:40 107 H 29 H 108/69 90 L 12/19/23 12:30 108 H 19 121/68 91 L 12/19/23 12:20 104 H 22 117/68 90 L 12/19/23 12:10 108 H 20 137/78 91 L 12/19/23 12:07 96.9 F 112 H 20 97/53 94 L 12/19/23 12:01 95 H 34 H 97/53 93 L 12/19/23 11:50 103 H 23 116/65 94 L 12/19/23 11:20 112 H 21 132/86 91 L 12/19/23 11:10 117 H 21 133/81 12/19/23 11:00 115 H 20 120/77 98 12/19/23 10:50 112 H 24 134/79 97 12/19/23 10:40 113 H 22 149/79 96 12/19/23 10:30 111 H 25 H 132/86 98 12/19/23 10:27 112 H 21 150/90 97 12/19/23 10:10 116 H 19 157/99 12/19/23 10:04 160/113 100 12/19/23 10:00 97.5 F 147 H 25 H 160/113 94 L General Appearance: no apparent distress, alert, obese Neurologic Exam: alert, oriented x 3, cooperative, normal mood/affect, nml cerebellar function, nml station & gait, sensation nml, motor weakness, No motor deficits Eye Exam: PERRL/EOMI, eyes nml inspection Ears, Nose, Throat Exam: normal ENT inspection, TMs normal, pharynx normal, moist mucous membranes Neck Exam: normal inspection, non-tender, supple, full range of motion Respiratory Exam: normal breath sounds, lungs clear, No respiratory distress Cardiovascular Exam: regular rate/rhythm, normal heart sounds, normal peripheral pulses Gastrointestinal/Abdomen Exam: soft, normal bowel sounds, No tenderness, No mass Back Exam: normal inspection, normal range of motion, No CVA tenderness, No v ertebral tenderness Extremity Exam: normal inspection, normal range of motion, pelvis stable Skin Exam: normal color, warm, dry, No rash Lymphatic Exam: No adenopathy Results - Labs Lab/Micro Results: Lab Results-Last 24 Hours 12/19/23 12/19/23 12/19/23 Range/Units 10:11 10:13 10:33 WBC 23.1 H (3.98-10.04) x10^3/uL RBC 4.52 (3.93-5.22) x10^6/uL Hgb 13.0 (11.2-15.7) g/dL Hct 41.1 (34.1-44.9) % MCV 90.9 (79.4-94.8) fL MCH 28.8 (25.6-32.2) pg MCHC 31.6 L (32.2-35.5) g/dL RDW 13.0 (11.7-14.4) % Plt Count 464 H (182-369) x10^3/uL MPV 8.5 L (9.4-12.3) fL Segmented Neutrophils 78 H (1.56-6.13) % Band Neutrophils 1 (0.0-2.0) % Lymphocytes (Manual) 21 L (24-44) % Monocytes (Manual) (0.0-12.0) % Eosinophils (Manual) (0.00-3.0) % Toxic Granulation 1+ Platelet Estimate INCREASED (NORMAL) RBC Morphology Smear Path Review pO2/FiO2 Ratio 36.0 % VBG pH 7.32 (7.32-7.42) VBG pCO2 at Pat Temp 36 L (42-55) mm/Hg VBG pO2 at Pat Temp 53 H (25-40) mm/Hg VBG HCO3 18.5 L (22-28) meq/L VBG O2 Sat (Muna) 84.9 L (95-100) VBG Base Excess -6.9 L (-2.0-2.0) VBG Hemoglobin 13.8 VBG Carboxyhemoglobin 2.8 (0.0-6.9) % T HGB POC Potassium 4.8 (3.5-5.1) Sodium (135-145) mmol/L Potassium (3.5-5.1) mmol/L Chloride (98-107) mmol/L Carbon Dioxide (22-30) mmol/L Anion Gap (5-15) MEQ/L BUN (7-17) mg/dL Creatinine (0.52-1.04) mg/dL Estimated GFR ML/MIN Glucose (74-106) mg/dL POC Glucometer (74 to 106) mg/dL Lactic Acid 8.4 H (0.4-2.0) Calcium (8.4-10.2) mg/dL Magnesium (1.6-2.3) mg/dL Total Bilirubin (0.2-1.3) mg/dL AST (14-36) U/L ALT (0-35) U/L Alkaline Phosphatase (38-126) U/L Troponin I (0.000-0.033) ng/mL NT-Pro-B Natriuret Pep (<300) pg/mL Serum Total Protein (6.3-8.2) g/dL Albumin (3.5-5.0) g/dL Amylase (30-110) U/L Lipase (23-300) U/L Urine Color (Yellow) Urine Appearance (Clear) Urine pH (4.6-8.0) Ur Specific Hughson (1.005-1.030) Urine Protein (Negative) Urine Glucose (UA) (Negative) mg/dL Urine Ketones (Negative) Urine Blood (Negative) Urine Nitrite (Negative) Urine Bilirubin (Negative) Urine Urobilinogen (0.2) mg/dL Ur Leukocyte Esterase (Negative) U Hyaline Cast (Auto) (0-2) /LPF Urine Microscopic RBC (0-5) /HPF Urine Microscopic WBC (0-5) /HPF Ur Epithelial Cells (None Seen) /HPF Urine Bacteria (None Seen) /HPF Urine Culture Reflexed (NO) Influenza Type A Ag (NEGATIVE) Influenza Type B Ag (NEGATIVE) RSV (PCR) (NEGATIVE) SARS-CoV-2 (PCR) (NEGATIVE) 12/19/23 12/19/23 12/19/23 Range/Units 10:33 10:33 10:33 WBC (3.98-10.04) x10^3/uL RBC (3.93-5.22) x10^6/uL Hgb (11.2-15.7) g/dL Hct (34.1-44.9) % MCV (79.4-94.8) fL MCH (25.6-32.2) pg MCHC (32.2-35.5) g/dL RDW (11.7-14.4) % Plt Count (182-369) x10^3/uL MPV (9.4-12.3) fL Segmented Neutrophils (1.56-6.13) % Band Neutrophils (0.0-2.0) % Lymphocytes (Manual) (24-44) % Monocytes (Manual) (0.0-12.0) % Eosinophils (Manual) (0.00-3.0) % Toxic Granulation Platelet Estimate (NORMAL) RBC Morphology Smear Path Review pO2/FiO2 Ratio % VBG pH (7.32-7.42) VBG pCO2 at Pat Temp (42-55) mm/Hg VBG pO2 at Pat Temp (25-40) mm/Hg VBG HCO3 (22-28) meq/L VBG O2 Sat (Muna) (95-100) VBG Base Excess (-2.0-2.0) VBG Hemoglobin VBG Carboxyhemoglobin (0.0-6.9) % T HGB POC Potassium (3.5-5.1) Sodium 130 L (135-145) mmol/L Potassium 4.6 (3.5-5.1) mmol/L Chloride 94 L (98-107) mmol/L Carbon Dioxide 17 L (22-30) mmol/L Anion Gap 23.3 H (5-15) MEQ/L BUN 19 H (7-17) mg/dL Creatinine 0.88 (0.52-1.04) mg/dL Estimated GFR 70.2 ML/MIN Glucose 572 H* (74-106) mg/dL POC Glucometer (74 to 106) mg/dL Lactic Acid (0.4-2.0) Calcium 9.9 (8.4-10.2) mg/dL Magnesium 2.0 (1.6-2.3) mg/dL Total Bilirubin 0.40 (0.2-1.3) mg/dL AST 58 H (14-36) U/L ALT 58 H (0-35) U/L Alkaline Phosphatase 148 H (38-126) U/L Troponin I 0.024 (0.000-0.033) ng/mL NT-Pro-B Natriuret Pep 159 (<300) pg/mL Serum Total Protein 7.7 (6.3-8.2) g/dL Albumin 4.3 (3.5-5.0) g/dL Amylase 82 (30-110) U/L Lipase 107 (23-300) U/L Urine Color (Yellow) Urine Appearance (Clear) Urine pH (4.6-8.0) Ur Specific Hughson (1.005-1.030) Urine Protein (Negative) Urine Glucose (UA) (Negative) mg/dL Urine Ketones (Negative) Urine Blood (Negative) Urine Nitrite (Negative) Urine Bilirubin (Negative) Urine Urobilinogen (0.2) mg/dL Ur Leukocyte Esterase (Negative) U Hyaline Cast (Auto) (0-2) /LPF Urine Microscopic RBC (0-5) /HPF Urine Microscopic WBC (0-5) /HPF Ur Epithelial Cells (None Seen) /HPF Urine Bacteria (None Seen) /HPF Urine Culture Reflexed (NO) Influenza Type A Ag NEGATIVE (NEGATIVE) Influenza Type B Ag NEGATIVE (NEGATIVE) RSV (PCR) NEGATIVE (NEGATIVE) SARS-CoV-2 (PCR) NEGATIVE (NEGATIVE) 12/19/23 12/19/23 12/19/23 Range/Units 12:04 12:09 12:40 WBC (3.98-10.04) x10^3/uL RBC (3.93-5.22) x10^6/uL Hgb (11.2-15.7) g/dL Hct (34.1-44.9) % MCV (79.4-94.8) fL MCH (25.6-32.2) pg MCHC (32.2-35.5) g/dL RDW (11.7-14.4) % Plt Count (182-369) x10^3/uL MPV (9.4-12.3) fL Segmented Neutrophils (1.56-6.13) % Band Neutrophils (0.0-2.0) % Lymphocytes (Manual) (24-44) % Monocytes (Manual) (0.0-12.0) % Eosinophils (Manual) (0.00-3.0) % Toxic Granulation Platelet Estimate (NORMAL) RBC Morphology Smear Path Review pO2/FiO2 Ratio % VBG pH (7.32-7.42) VBG pCO2 at Pat Temp (42-55) mm/Hg VBG pO2 at Pat Temp (25-40) mm/Hg VBG HCO3 (22-28) meq/L VBG O2 Sat (Muna) (95-100) VBG Base Excess (-2.0-2.0) VBG Hemoglobin VBG Carboxyhemoglobin (0.0-6.9) % T HGB POC Potassium (3.5-5.1) Sodium (135-145) mmol/L Potassium (3.5-5.1) mmol/L Chloride (98-107) mmol/L Carbon Dioxide (22-30) mmol/L Anion Gap (5-15) MEQ/L BUN (7-17) mg/dL Creatinine (0.52-1.04) mg/dL Estimated GFR ML/MIN Glucose (74-106) mg/dL POC Glucometer 355 H (74 to 106) mg/dL Lactic Acid 2.7 H (0.4-2.0) Calcium (8.4-10.2) mg/dL Magnesium (1.6-2.3) mg/dL Total Bilirubin (0.2-1.3) mg/dL AST (14-36) U/L ALT (0-35) U/L Alkaline Phosphatase (38-126) U/L Troponin I (0.000-0.033) ng/mL NT-Pro-B Natriuret Pep (<300) pg/mL Serum Total Protein (6.3-8.2) g/dL Albumin (3.5-5.0) g/dL Amylase (30-110) U/L Lipase (23-300) U/L Urine Color Yellow (Yellow) Urine Appearance Clear (Clear) Urine pH 5.5 (4.6-8.0) Ur Specific Hughson >=1.030 A (1.005-1.030) Urine Protein Trace A (Negative) Urine Glucose (UA) >=1000 A (Negative) mg/dL Urine Ketones Negative (Negative) Urine Blood Negative (Negative) Urine Nitrite Negative (Negative) Urine Bilirubin Negative (Negative) Urine Urobilinogen 0.2 (0.2) mg/dL Ur Leukocyte Esterase Negative (Negative) U Hyaline Cast (Auto) None Seen (0-2) /LPF Urine Microscopic RBC NONE SEEN (0-5) /HPF Urine Microscopic WBC 0-2 (0-5) /HPF Ur Epithelial Cells Few (None Seen) /HPF Urine Bacteria None Seen (None Seen) /HPF Urine Culture Reflexed YES (NO) Influenza Type A Ag (NEGATIVE) Influenza Type B Ag (NEGATIVE) RSV (PCR) (NEGATIVE) SARS-CoV-2 (PCR) (NEGATIVE) 12/19/23 12/19/23 12/19/23 Range/Units 13:32 13:32 13:32 WBC 27.5 H* (3.98-10.04) x10^3/uL RBC 3.75 L (3.93-5.22) x10^6/uL Hgb 10.8 L (11.2-15.7) g/dL Hct 32.4 L (34.1-44.9) % MCV 86.4 (79.4-94.8) fL MCH 28.8 (25.6-32.2) pg MCHC 33.3 (32.2-35.5) g/dL RDW 13.1 (11.7-14.4) % Plt Count 324 (182-369) x10^3/uL MPV 8.2 L (9.4-12.3) fL Segmented Neutrophils 90 H (1.56-6.13) % Band Neutrophils (0.0-2.0) % Lymphocytes (Manual) 6 L (24-44) % Monocytes (Manual) 3 (0.0-12.0) % Eosinophils (Manual) 1 (0.00-3.0) % Toxic Granulation 1+ Platelet Estimate NORMAL (NORMAL) RBC Morphology NORMAL Smear Path Review Pending pO2/FiO2 Ratio % VBG pH (7.32-7.42) VBG pCO2 at Pat Temp (42-55) mm/Hg VBG pO2 at Pat Temp (25-40) mm/Hg VBG HCO3 (22-28) meq/L VBG O2 Sat (Muna) (95-100) VBG Base Excess (-2.0-2.0) VBG Hemoglobin VBG Carboxyhemoglobin (0.0-6.9) % T HGB POC Potassium (3.5-5.1) Sodium 135 (135-145) mmol/L Potassium 4.0 (3.5-5.1) mmol/L Chloride 103 (98-107) mmol/L Carbon Dioxide 23 (22-30) mmol/L Anion Gap 12.6 (5-15) MEQ/L BUN 17 (7-17) mg/dL Creatinine 0.61 (0.52-1.04) mg/dL Estimated GFR 95.5 ML/MIN Glucose 275 H (74-106) mg/dL POC Glucometer (74 to 106) mg/dL Lactic Acid (0.4-2.0) Calcium 8.4 D (8.4-10.2) mg/dL Magnesium (1.6-2.3) mg/dL Total Bilirubin (0.2-1.3) mg/dL AST (14-36) U/L ALT (0-35) U/L Alkaline Phosphatase (38-126) U/L Troponin I 0.364 H* (0.000-0.033) ng/mL NT-Pro-B Natriuret Pep (<300) pg/mL Serum Total Protein (6.3-8.2) g/dL Albumin (3.5-5.0) g/dL Amylase (30-110) U/L Lipase (23-300) U/L Urine Color (Yellow) Urine Appearance (Clear) Urine pH (4.6-8.0) Ur Specific Hughson (1.005-1.030) Urine Protein (Negative) Urine Glucose (UA) (Negative) mg/dL Urine Ketones (Negative) Urine Blood (Negative) Urine Nitrite (Negative) Urine Bilirubin (Negative) Urine Urobilinogen (0.2) mg/dL Ur Leukocyte Esterase (Negative) U Hyaline Cast (Auto) (0-2) /LPF Urine Microscopic RBC (0-5) /HPF Urine Microscopic WBC (0-5) /HPF Ur Epithelial Cells (None Seen) /HPF Urine Bacteria (None Seen) /HPF Urine Culture Reflexed (NO) Influenza Type A Ag (NEGATIVE) Influenza Type B Ag (NEGATIVE) RSV (PCR) (NEGATIVE) SARS-CoV-2 (PCR) (NEGATIVE) - Radiology Impressions Radiology Exams & Impressions: Radiology Procedures Category Date Time Status CHEST WITH CONTRAST [CT] Stat Exams 12/19/23 10:13 Completed HEAD WITHOUT CONTRAST [CT] Stat Exams 12/19/23 10:15 Completed Assessment/Plan (1) Sepsis Current Visit: Yes Status: Acute Assessment & Plan: - Lactic acid elevated in ER 2L IV fluid bolus gave - elevated HR, resp - elevated WBC - + aspiration/ CPR on arrival to ER - antibiotics - tele - repeat LA at 1900 (2) Hyperglycemia due to diabetes mellitus Current Visit: Yes Status: Acute Assessment & Plan: - also 2:2 steriod injection of left shoulder yesterday OP - accuchecks ac/hs - Continue home insulin dosing and s/s - Carb const diet. - A1C pending Code(s): E11.65 - TYPE 2 DIABETES MELLITUS WITH HYPERGLYCEMIA (3) Aspiration into airway Current Visit: Yes Status: Acute Assessment & Plan: - meat removed from airway in ER - ST eval - soft diet, carb consistent - post CPR - tylenol, norco PRN pain - CT head and Chest reviewed no concerning findings Code(s): T17.908A - UNSP FB IN RESP TRACT, PART UNSP CAUSING OTH INJURY, INIT (4) Elevated troponin Current Visit: Yes Status: Acute Assessment & Plan: - Trend trops, 2nd trop elevated - cardiology consult - 2:2 CPR? - Echo Code(s): R79.89 - OTHER SPECIFIED ABNORMAL FINDINGS OF BLOOD CHEMISTRY (5) Leukocytosis Current Visit: Yes Status: Acute Assessment & Plan: - Continue Antibiotics - CT chest negative for acute concern - WBC 27.5 trend Code(s): D72.829 - ELEVATED WHITE BLOOD CELL COUNT, UNSPECIFIED (6) Morbid obesity with BMI of 40.0-44.9, adult Current Visit: Yes Status: Acute Assessment & Plan: - Advised ADA diet and exercise control Code(s): E66.01 - MORBID (SEVERE) OBESITY DUE TO EXCESS CALORIES; Z68.41 - BODY MASS INDEX [BMI] 40.0-44.9, ADULT (7) Pitting edema Current Visit: Yes Status: Acute Assessment & Plan: - BLLE - echo - SCD's - lasix X1 - purewick Code(s): R60.9 - EDEMA, UNSPECIFIED Telemedicine Encounter - Telemedicine Encounter Telemedicine Encounter: "The entirety of this encounter was performed via Telemedicine" This visit was performed using real-time audio and video connection between my location and thepatients locationwith the assistance of a surrogateat the patients location. Written or verbal consent was obtained from the patient/guardian to perform this visit [email or web address]. Any patient questions regarding the telemedicine interaction were answered.
[2023-12-19] MEDS: NORCO 5/325 MG PO PRN (17:46)
[2023-12-19] MEDS ORDERED: ANTIVERT 25 MG PO PRN (18:19)
[2023-12-19] MEDS ORDERED: PROVENTIL 2.5 MG/3 ML NEB IH SCH (19:00)
[2023-12-19] MEDS: Klor Con PO ONE (19:23)
[2023-12-19] MEDS: PROTONIX 40 MG IV IV SCH (19:24)
[2023-12-19] MEDS: Lantus Insulin SQ SCH (21:49)
[2023-12-20 05:11] LABS: Hematocrit 35.8 % (34.1-44.9); Hemoglobin 11.7 g/dL (11.2-15.7); Mean Cell Volume 87.1 fL (79.4-94.8); Mean Corpuscular Hemoglobin 28.5 pg (25.6-32.2); Mean Corpuscular Hgb Concent. 32.7 g/dL (32.2-35.5); Mean Platelet Volume 8.4 fL (9.4-12.3); Platelet Count 352 x10^3/uL (182-369); Red Blood Count 4.11 x10^6/uL (3.93-5.22); Red Cell Distribution Width 13.3 % (11.7-14.4); White Blood Count 18.7 x10^3/uL (3.98-10.04)
[2023-12-20 05:35] LABS: ALBUMIN 3.5 g/dL (3.5-5.0); ANION GAP 9.9 MEQ/L (5-15); BILIRUBIN,TOTAL 0.4 mg/dL (0.2-1.3); Calcium 9.2 mg/dL (8.4-10.2); Creatinine 1 0.55 mg/dL (0.52-1.04); EST GLOMERULAR FILTRATION RATE 97.9 ML/MIN; Potassium 4.1 mmol/L (3.5-5.1); Total Protein 6.9 g/dL (6.3-8.2)
[2023-12-20] MEDS ORDERED: PROTONIX 40 MG IV IV ONE (05:58)
[2023-12-20] MEDS ORDERED: NORCO 5/325 MG ONE (05:58)
[2023-12-20] MEDS ORDERED: MEDICATION INTERVENTION MC SCH (07:30)
[2023-12-20] MEDS: ZOCOR 20MG PO SCH (07:37)
[2023-12-20] MEDS: Lasix 20 MG/2 ML IV SCH (08:26)
[2023-12-20] MEDS: MAG-OX 400 PO SCH (08:36)
[2023-12-20] MEDS: Abilify 10 MG PO SCH (08:36)
[2023-12-20] MEDS: Cymbalta 30 MG Capsule PO SCH (08:36)
[2023-12-20] MEDS: Ditropan XL 5 MG PO SCH (08:36)
[2023-12-20] MEDS: SYNTHROID 100 MCG PO SCH (08:36)
[2023-12-20] MEDS: ISOPTIN SR PO SCH (08:38)
[2023-12-20] MEDS: ROCEPHIN 1 GM / 100 ML NaCl 1 GM/100 ML IVPB IV SCH (08:38)
[2023-12-20] MEDS: HUMALOG SQ SCH (08:53)
[2023-12-20] MEDS ORDERED: CHLORTHALIDONE PO SCH (10:00)
[2023-12-20] MEDS ORDERED: CHOLECALCIFEROL PO SCH (10:00)
[2023-12-20] MEDS ORDERED: VIT K2 PO SCH (10:00)
[2023-12-20] MEDS ORDERED: [UNRECOGNIZED DRUG - OTHER] PO SCH (10:00)
[2023-12-20] MEDS ORDERED: NON-FORMULARY ITEM (Duloxetine Hcl [Duloxetine Hcl] 60 MG Capsule.Dr) PO SCH (10:00)
[2023-12-20] MEDS: Zithromax 500 MG/ 250 ML NaCl Premix 500 MG/250 ML IVPB IV SCH (10:51)
[2023-12-20] MEDS: K-LYTE PO ONE (10:52)
--- NOTE | 2023-12-20 12:06 | PCM.NOTE ---
Date and Time: 12/20/23 1200 Subjective Assessment: 12/20/23 is a 73 year old female with PMHX of TIA, angina, congenital heart defect, hyperlipidemia, HTN, Sleep apnea, Type II DM, hypothyroidism, OA, Diverticulitis, depression, anxiety, GERD, and Colon resection. Per ER records pt was brought in unresponsive and CPR provided. She aspirated on some meat this morning. They were able to remove the meat in the ER and sxs improved and she became more responsive. Lactic acid elevated in ER and Septic. She was started on antibiotics and IV fluids. Glucose was elevated and insulin given in ER. Will continue IV antibiotics and consult cardiology, ST. Will order echo as 2nd troponin is elevated. She reports she had a right shoulder steroid injection yesterday. She reports she was told she has a R rotator cuff tear. This is the cause for her elevated glucose today she reports. She is c/o recent BLLE pitting edema with unknown cause. She reports having an EGD 2 months ago for GI bleeding and is scheduled for colonoscopy with Dr. Marcus in Jan. She has had no recent dark or bloody stools. Protonix BID started. She is c/o rib pain from CPR- [place] and tylenol ordered PRN for pain. She denies CP, SOB, abd. pain, N/V/D. / Azael - cake icer 12/21/23 Pt resting in bed. She states she feels better today. She is awaiting cardiology consult, Echo, ST eval, barium swallow series, and PT eval today. WBC improved to 18.7. Glucose controlled. Will stop antibiotics. Chest CT clear, and lung sounds are clear. IV lasix x1 gave for 3+ pitting edema of BLLE today. She has continued lower rib pain but otherwise feels good. She denies, CP, SOB, Abd. pain, N/V/D. - Review of Systems Constitutional: No Fever, No Chills Eyes: No Symptoms Ears, Nose, & Throat: No Symptoms Respiratory: No Cough, No Short Of Breath Cardiac: Edema (BLLE), No Chest Pain, No Syncope Abdominal/Gastrointestinal: No Symptoms, No Nausea, No Vomiting, No Diarrhea Genitourinary Symptoms: No Dysuria Musculoskeletal: Other (lower rib pain BL), No Back Pain, No Neck Pain Skin: No Rash Neurological: No Dizziness, No Focal Weakness, No Sensory Changes Psychological: No Symptoms Endocrine: No Symptoms Hematologic/Lymphatic: No Symptoms Immunological/Allergic: No Symptoms Objective Exam General Appearance: no apparent distress, alert Neurologic Exam: alert, oriented x 3, cooperative, normal mood/affect, nml cerebellar function, sensation nml, No motor deficits Skin Exam: normal color, warm, dry Eye Exam: PERRL, EOMI, eyes nml inspection Ears, Nose, Throat Exam: normal ENT inspection, pharynx normal, moist mucous membranes Neck Exam: normal inspection, non-tender, supple, full range of motion Respiratory Exam: normal breath sounds, lungs clear, No respiratory distress Cardiovascular Exam: regular rate/rhythm, normal heart sounds, edema (BLLE +3 pitting) Gastrointestinal/Abdomen Exam: soft, No mass Extremity Exam: normal inspection, normal range of motion Back Exam: normal inspection, normal range of motion, No CVA tenderness, No vertebral tenderness Pelvic Exam: deferred Rectal Exam: deferred Objective Data Vital Signs: Vital Signs - 24 hr Temp Pulse Resp BP BP Pulse Ox 12/20/23 11:10 96.8 F 92 H 16 104/59 93 L 12/20/23 07:55 97.4 F 101 H 18 129/74 96 12/20/23 07:02 93 L 12/20/23 06:53 97 12/20/23 03:53 97.1 F 103 H 19 118/68 97 12/20/23 00:00 96.8 F 105 H 20 115/74 97 12/19/23 20:00 96.8 F 107 H 18 116/69 95 12/19/23 19:50 93 L 12/19/23 17:36 89 18 95 12/19/23 17:19 97.6 F 107 H 18 126/76 92 L 12/19/23 16:50 138/79 12/19/23 16:40 109 H 20 146/83 93 L 12/19/23 16:30 109 H 21 127/78 93 L 12/19/23 16:20 112 H 18 145/86 94 L 12/19/23 16:10 112 H 19 135/80 94 L 12/19/23 16:00 109 H 24 133/81 95 12/19/23 15:50 112 H 20 131/80 95 12/19/23 15:40 108 H 20 132/81 96 12/19/23 15:30 108 H 21 129/75 12/19/23 15:20 108 H 14 114/57 87 L 12/19/23 15:10 109 H 24 141/82 98 12/19/23 15:08 94 L 12/19/23 15:00 107 H 21 120/78 93 L 12/19/23 14:50 109 H 37 H 134/79 95 12/19/23 14:40 112 H 19 140/78 91 L 12/19/23 14:30 108 H 14 135/81 93 L 12/19/23 14:20 108 H 17 137/86 94 L 12/19/23 14:10 109 H 20 143/86 92 L 12/19/23 14:00 108 H 22 124/78 91 L 12/19/23 13:50 110 H 19 138/74 90 L 12/19/23 13:40 106 H 22 111/65 95 12/19/23 13:39 106 H 11 L 94 L 12/19/23 13:32 108 H 0 L 92 L 12/19/23 13:20 103 H 10 L 122/76 95 12/19/23 13:10 103 H 19 117/70 96 12/19/23 13:00 104 H 18 114/72 96 12/19/23 12:50 104 H 15 108/71 92 L 12/19/23 12:40 107 H 29 H 108/69 90 L 12/19/23 12:30 108 H 19 121/68 91 L 12/19/23 12:20 104 H 22 117/68 90 L 12/19/23 12:10 108 H 20 137/78 91 L 12/19/23 12:07 96.9 F 112 H 20 97/53 94 L 12/19/23 12:01 95 H 34 H 97/53 93 L Pain Assessment - Last Documented Pain Intensity 4 Pain Scale Used 0-10 Pain Scale Intake and Output: Intake & Output 12/18/23 12/19/23 12/20/23 12/21/23 11:59 11:59 11:59 11:59 Intake Total 520 Output Total 350 Balance 170 Weight 94.2 kg 93.5 kg Lab Results: Lab Results-Last 24 Hours 12/19/23 12/19/23 12/19/23 Range/Units 12:04 12:09 12:40 WBC (3.98-10.04) x10^3/uL RBC (3.93-5.22) x10^6/uL Hgb (11.2-15.7) g/dL Hct (34.1-44.9) % MCV (79.4-94.8) fL MCH (25.6-32.2) pg MCHC (32.2-35.5) g/dL RDW (11.7-14.4) % Plt Count (182-369) x10^3/uL MPV (9.4-12.3) fL Segmented Neutrophils (1.56-6.13) % Lymphocytes (Manual) (24-44) % Monocytes (Manual) (0.0-12.0) % Eosinophils (Manual) (0.00-3.0) % Toxic Granulation Platelet Estimate (NORMAL) RBC Morphology Smear Path Review Sodium (135-145) mmol/L Potassium (3.5-5.1) mmol/L Chloride (98-107) mmol/L Carbon Dioxide (22-30) mmol/L Anion Gap (5-15) MEQ/L BUN (7-17) mg/dL Creatinine (0.52-1.04) mg/dL Estimated GFR ML/MIN Glucose (74-106) mg/dL POC Glucometer 355 H (74 to 106) mg/dL Hemoglobin A1c (4.5-6.0) % Lactic Acid 2.7 H (0.4-2.0) Calcium (8.4-10.2) mg/dL Total Bilirubin (0.2-1.3) mg/dL AST (14-36) U/L ALT (0-35) U/L Alkaline Phosphatase (38-126) U/L Troponin I (0.000-0.033) ng/mL Serum Total Protein (6.3-8.2) g/dL Albumin (3.5-5.0) g/dL Urine Color Yellow (Yellow) Urine Appearance Clear (Clear) Urine pH 5.5 (4.6-8.0) Ur Specific [place] >=1.030 A (1.005-1.030) Urine Protein Trace A (Negative) Urine Glucose (UA) >=1000 A (Negative) mg/dL Urine Ketones Negative (Negative) Urine Blood Negative (Negative) Urine Nitrite Negative (Negative) Urine Bilirubin Negative (Negative) Urine Urobilinogen 0.2 (0.2) mg/dL Ur Leukocyte Esterase Negative (Negative) U Hyaline Cast (Auto) None Seen (0-2) /LPF Urine Microscopic RBC NONE SEEN (0-5) /HPF Urine Microscopic WBC 0-2 (0-5) /HPF Ur Epithelial Cells Few (None Seen) /HPF Urine Bacteria None Seen (None Seen) /HPF Urine Culture Reflexed YES (NO) 12/19/23 12/19/23 12/19/23 Range/Units 13:32 13:32 13:32 WBC 27.5 H* (3.98-10.04) x10^3/uL RBC 3.75 L (3.93-5.22) x10^6/uL Hgb 10.8 L (11.2-15.7) g/dL Hct 32.4 L (34.1-44.9) % MCV 86.4 (79.4-94.8) fL MCH 28.8 (25.6-32.2) pg MCHC 33.3 (32.2-35.5) g/dL RDW 13.1 (11.7-14.4) % Plt Count 324 (182-369) x10^3/uL MPV 8.2 L (9.4-12.3) fL Segmented Neutrophils 90 H (1.56-6.13) % Lymphocytes (Manual) 6 L (24-44) % Monocytes (Manual) 3 (0.0-12.0) % Eosinophils (Manual) 1 (0.00-3.0) % Toxic Granulation 1+ Platelet Estimate NORMAL (NORMAL) RBC Morphology NORMAL Smear Path Review Sodium 135 (135-145) mmol/L Potassium 4.0 (3.5-5.1) mmol/L Chloride 103 (98-107) mmol/L Carbon Dioxide 23 (22-30) mmol/L Anion Gap 12.6 (5-15) MEQ/L BUN 17 (7-17) mg/dL Creatinine 0.61 (0.52-1.04) mg/dL Estimated GFR 95.5 ML/MIN Glucose 275 H (74-106) mg/dL POC Glucometer (74 to 106) mg/dL Hemoglobin A1c (4.5-6.0) % Lactic Acid (0.4-2.0) Calcium 8.4 D (8.4-10.2) mg/dL Total Bilirubin (0.2-1.3) mg/dL AST (14-36) U/L ALT (0-35) U/L Alkaline Phosphatase (38-126) U/L Troponin I 0.364 H* (0.000-0.033) ng/mL Serum Total Protein (6.3-8.2) g/dL Albumin (3.5-5.0) g/dL Urine Color (Yellow) Urine Appearance (Clear) Urine pH (4.6-8.0) Ur Specific [place] (1.005-1.030) Urine Protein (Negative) Urine Glucose (UA) (Negative) mg/dL Urine Ketones (Negative) Urine Blood (Negative) Urine Nitrite (Negative) Urine Bilirubin (Negative) Urine Urobilinogen (0.2) mg/dL Ur Leukocyte Esterase (Negative) U Hyaline Cast (Auto) (0-2) /LPF Urine Microscopic RBC (0-5) /HPF Urine Microscopic WBC (0-5) /HPF Ur Epithelial Cells (None Seen) /HPF Urine Bacteria (None Seen) /HPF Urine Culture Reflexed (NO) 12/19/23 12/19/23 12/19/23 Range/Units 13:32 18:35 18:40 WBC (3.98-10.04) x10^3/uL RBC (3.93-5.22) x10^6/uL Hgb (11.2-15.7) g/dL Hct (34.1-44.9) % MCV (79.4-94.8) fL MCH (25.6-32.2) pg MCHC (32.2-35.5) g/dL RDW (11.7-14.4) % Plt Count (182-369) x10^3/uL MPV (9.4-12.3) fL Segmented Neutrophils (1.56-6.13) % Lymphocytes (Manual) (24-44) % Monocytes (Manual) (0.0-12.0) % Eosinophils (Manual) (0.00-3.0) % Toxic Granulation Platelet Estimate (NORMAL) RBC Morphology Smear Path Review Sodium (135-145) mmol/L Potassium (3.5-5.1) mmol/L Chloride (98-107) mmol/L Carbon Dioxide (22-30) mmol/L Anion Gap (5-15) MEQ/L BUN (7-17) mg/dL Creatinine (0.52-1.04) mg/dL Estimated GFR ML/MIN Glucose (74-106) mg/dL POC Glucometer (74 to 106) mg/dL Hemoglobin A1c 8.00 H (4.5-6.0) % Lactic Acid 1.7 (0.4-2.0) Calcium (8.4-10.2) mg/dL Total Bilirubin (0.2-1.3) mg/dL AST (14-36) U/L ALT (0-35) U/L Alkaline Phosphatase (38-126) U/L Troponin I 0.850 H* (0.000-0.033) ng/mL Serum Total Protein (6.3-8.2) g/dL Albumin (3.5-5.0) g/dL Urine Color (Yellow) Urine Appearance (Clear) Urine pH (4.6-8.0) Ur Specific [place] (1.005-1.030) Urine Protein (Negative) Urine Glucose (UA) (Negative) mg/dL Urine Ketones (Negative) Urine Blood (Negative) Urine Nitrite (Negative) Urine Bilirubin (Negative) Urine Urobilinogen (0.2) mg/dL Ur Leukocyte Esterase (Negative) U Hyaline Cast (Auto) (0-2) /LPF Urine Microscopic RBC (0-5) /HPF Urine Microscopic WBC (0-5) /HPF Ur Epithelial Cells (None Seen) /HPF Urine Bacteria (None Seen) /HPF Urine Culture Reflexed (NO) 12/19/23 12/20/23 12/20/23 Range/Units 21:45 04:40 04:40 WBC 18.7 H (3.98-10.04) x10^3/uL RBC 4.11 (3.93-5.22) x10^6/uL Hgb 11.7 (11.2-15.7) g/dL Hct 35.8 (34.1-44.9) % MCV 87.1 (79.4-94.8) fL MCH 28.5 (25.6-32.2) pg MCHC 32.7 (32.2-35.5) g/dL RDW 13.3 (11.7-14.4) % Plt Count 352 (182-369) x10^3/uL MPV 8.4 L (9.4-12.3) fL Segmented Neutrophils (1.56-6.13) % Lymphocytes (Manual) (24-44) % Monocytes (Manual) (0.0-12.0) % Eosinophils (Manual) (0.00-3.0) % Toxic Granulation Platelet Estimate (NORMAL) RBC Morphology Smear Path Review Sodium 136 (135-145) mmol/L Potassium 4.1 (3.5-5.1) mmol/L Chloride 100 (98-107) mmol/L Carbon Dioxide 30 (22-30) mmol/L Anion Gap 9.9 (5-15) MEQ/L BUN 13 (7-17) mg/dL Creatinine 0.55 (0.52-1.04) mg/dL Estimated GFR 97.9 ML/MIN Glucose 148 H (74-106) mg/dL POC Glucometer 235 H (74 to 106) mg/dL Hemoglobin A1c (4.5-6.0) % Lactic Acid (0.4-2.0) Calcium 9.2 (8.4-10.2) mg/dL Total Bilirubin 0.40 (0.2-1.3) mg/dL AST 39 H (14-36) U/L ALT 37 H (0-35) U/L Alkaline Phosphatase 112 (38-126) U/L Troponin I (0.000-0.033) ng/mL Serum Total Protein 6.9 (6.3-8.2) g/dL Albumin 3.5 (3.5-5.0) g/dL Urine Color (Yellow) Urine Appearance (Clear) Urine pH (4.6-8.0) Ur Specific [place] (1.005-1.030) Urine Protein (Negative) Urine Glucose (UA) (Negative) mg/dL Urine Ketones (Negative) Urine Blood (Negative) Urine Nitrite (Negative) Urine Bilirubin (Negative) Urine Urobilinogen (0.2) mg/dL Ur Leukocyte Esterase (Negative) U Hyaline Cast (Auto) (0-2) /LPF Urine Microscopic RBC (0-5) /HPF Urine Microscopic WBC (0-5) /HPF Ur Epithelial Cells (None Seen) /HPF Urine Bacteria (None Seen) /HPF Urine Culture Reflexed (NO) 12/20/23 12/20/23 Range/Units 07:08 10:57 WBC (3.98-10.04) x10^3/uL RBC (3.93-5.22) x10^6/uL Hgb (11.2-15.7) g/dL Hct (34.1-44.9) % MCV (79.4-94.8) fL MCH (25.6-32.2) pg MCHC (32.2-35.5) g/dL RDW (11.7-14.4) % Plt Count (182-369) x10^3/uL MPV (9.4-12.3) fL Segmented Neutrophils (1.56-6.13) % Lymphocytes (Manual) (24-44) % Monocytes (Manual) (0.0-12.0) % Eosinophils (Manual) (0.00-3.0) % Toxic Granulation Platelet Estimate (NORMAL) RBC Morphology Smear Path Review Sodium (135-145) mmol/L Potassium (3.5-5.1) mmol/L Chloride (98-107) mmol/L Carbon Dioxide (22-30) mmol/L Anion Gap (5-15) MEQ/L BUN (7-17) mg/dL Creatinine (0.52-1.04) mg/dL Estimated GFR ML/MIN Glucose (74-106) mg/dL POC Glucometer 122 H 266 H (74 to 106) mg/dL Hemoglobin A1c (4.5-6.0) % Lactic Acid (0.4-2.0) Calcium (8.4-10.2) mg/dL Total Bilirubin (0.2-1.3) mg/dL AST (14-36) U/L ALT (0-35) U/L Alkaline Phosphatase (38-126) U/L Troponin I (0.000-0.033) ng/mL Serum Total Protein (6.3-8.2) g/dL Albumin (3.5-5.0) g/dL Urine Color (Yellow) Urine Appearance (Clear) Urine pH (4.6-8.0) Ur Specific [place] (1.005-1.030) Urine Protein (Negative) Urine Glucose (UA) (Negative) mg/dL Urine Ketones (Negative) Urine Blood (Negative) Urine Nitrite (Negative) Urine Bilirubin (Negative) Urine Urobilinogen (0.2) mg/dL Ur Leukocyte Esterase (Negative) U Hyaline Cast (Auto) (0-2) /LPF Urine Microscopic RBC (0-5) /HPF Urine Microscopic WBC (0-5) /HPF Ur Epithelial Cells (None Seen) /HPF Urine Bacteria (None Seen) /HPF Urine Culture Reflexed (NO) Radiology Exams: Radiology Procedures Category Date Time Status BARIUM SWALLOW ESOPHOGRAM Routine Exams 12/20/23 10:11 Ordered CHEST WITH CONTRAST [CT] Stat Exams 12/19/23 10:13 Completed ECHO W/2D AND DOPPLER [US] Routine Exams 12/20/23 07:26 Taken HEAD WITHOUT CONTRAST [CT] Stat Exams 12/19/23 10:15 Completed Multi-Disciplinary Progress Notes: Multi-Disciplinary Progress Notes 12/20/23 10:26 Speech Therapy Note by Dayne(Magdi#[id number] DISCUSSED WITH PATIENT. PATIENT C/O THROAT FEELING CLOSED OFF DAILY WITH INTAKE. PATIENT STATED SHE HAS TO BEAT ON HER CHEST TO GET FOOD TO GO DOWN. ST RECOMMENDS COMPLETION OF BARIUM SWALLOW ESOPHAGRAM BE COMPLETED FOR FUNCTIONAL ASSESSMENT OF ESOPHAGEAL MOTILITY. MBS MAY BE NEEDED IN THE FUTURE. LILIAN BLACKWELL, MS, CCC/BUILD ENGINEER Initialized on 12/20/23 10:26 - END OF NOTE 12/19/23 19:51 Respiratory Note by Windy Puri AT THIS TIME, PATIENT DOES NOT WANT TO WEAR CPAP. INSTRUCTED TO CALL IF SHE CHANGES HER MIND. Initialized on 12/19/23 19:51 - END OF NOTE Assessment/Plan (1) Sepsis Current Visit: Yes Status: Acute (2) Hyperglycemia due to diabetes mellitus Current Visit: Yes Status: Acute Code(s): E11.65 - TYPE 2 DIABETES MELLITUS WITH HYPERGLYCEMIA (3) Aspiration into airway Current Visit: Yes Status: Acute Code(s): T17.908A - UNSP FB IN RESP TRACT, PART UNSP CAUSING OTH INJURY, INIT (4) Elevated troponin Current Visit: Yes Status: Acute Code(s): R79.89 - OTHER SPECIFIED ABNORMAL FINDINGS OF BLOOD CHEMISTRY (5) Leukocytosis Current Visit: Yes Status: Acute Code(s): D72.829 - ELEVATED WHITE BLOOD CELL COUNT, UNSPECIFIED (6) Morbid obesity with BMI of 40.0-44.9, adult Current Visit: Yes Status: Acute Code(s): E66.01 - MORBID (SEVERE) OBESITY DUE TO EXCESS CALORIES; Z68.41 - BODY MASS INDEX [BMI] 40.0-44.9, ADULT (7) Pitting edema Current Visit: Yes Status: Acute Assessment & Plan: (1) Sepsis Current Visit: Yes Status: Acute Assessment & Plan: - Lactic acid elevated in ER 2L IV fluid bolus gave - elevated HR, resp - elevated WBC - + aspiration/ CPR on arrival to ER - antibiotics - tele - repeat LA at 1900- 1.7 (2) Hyperglycemia due to diabetes mellitus Current Visit: Yes Status: Acute Assessment & Plan: - also 2:2 steriod injection of right shoulder yesterday OP - accuchecks ac/hs - Continue home insulin dosing and s/s - Carb const diet. / soft diet - A1C 8.0- uncontrolled Code(s): E11.65 - TYPE 2 DIABETES MELLITUS WITH HYPERGLYCEMIA (3) Aspiration into airway Current Visit: Yes Status: Acute Assessment & Plan: - meat removed from airway in ER - ST eval - soft diet, carb consistent - post CPR - tylenol, norco PRN pain - CT head and Chest reviewed no concerning findings 12/19 - ST eval and barium swallow series Code(s): T17.908A - UNSP FB IN RESP TRACT, PART UNSP CAUSING OTH INJURY, INIT (4) Elevated troponin Current Visit: Yes Status: Acute Assessment & Plan: - Trend trops, 2nd trop elevated - cardiology consult - 2:2 CPR - Echo Code(s): R79.89 - OTHER SPECIFIED ABNORMAL FINDINGS OF BLOOD CHEMISTRY (5) Leukocytosis Current Visit: Yes Status: Acute Assessment & Plan: - Continue Antibiotics - CT chest negative for acute concern - WBC 27.5 trend 12/19 - WBC 18.7 - antibiotics stopped Code(s): D72.829 - ELEVATED WHITE BLOOD CELL COUNT, UNSPECIFIED (6) Morbid obesity with BMI of 40.0-44.9, adult Current Visit: Yes Status: Acute Assessment & Plan: - Advised ADA diet and exercise control - PT eval for home needs Code(s): E66.01 - MORBID (SEVERE) OBESITY DUE TO EXCESS CALORIES; Z68.41 - BODY MASS INDEX [BMI] 40.0-44.9, ADULT (7) Pitting edema Current Visit: Yes Status: Acute Assessment & Plan: - BLLE - echo - SCD's - lasix X1 - K+ replacement - purewick - TEDS Code(s): R60.9 - EDEMA, UNSPECIFIED
--- NOTE | 2023-12-20 14:46 | XRAY ---
Indication: Aspiration. Esophagram performed in AP, oblique, and lateral planes. Patient ingested barium without miss swallow or aspiration. Esophagus is normal in course and caliber without focal stricture, obstruction, or filling defect. Barium freely empties into the stomach. No hiatal hernia or gastroesophageal reflux demonstrated. Patient could not swallow a barium tablet with water quality technician. Impression: Negative esophagram. 0.7 minute fluoroscopy used.
[2023-12-20] MEDS ORDERED: Lasix 20 MG/2 ML IV ONE (18:22)
--- NOTE | 2023-12-20 18:25 | PCM.CONS ---
History of Present Illness - Date of Consult Date of Encounter: 12/20/23 Consulting Sewing Machine Operator Paper Bags: SHARAD ARENAS MD Requesting Provider: Attending Provider: WISAM LARSON MD Primary Care Provider: PCP: LAWRENCE ORELLANA NP Consent was: Given for this tele-med encounter - Consult Narrative Reason for Consult: Elevated troponin-I HPI: Patient is a 73F who denies fevers, chills, nausea, vomiting, diarrhea, syncope, presyncope, dysphagia,odynophagia, orthopnea, paroxysmal nocturnal dyspnea, shortness of breath, chest pain, refluxsymptoms, belly pain, dysuria, hematuria, melena, hematochezia, seizures, paralysis, or other neurological changes. All other systems have been reviewed and are negative. cc:: The requesting physician will be sent a copy of the consult. - Past Medical History Past Medical History: Yes Neurological History: TIA ENT History: No Pertinent History Cardiac History: Angina, High Cholesterol, Hypertension, Other Respiratory History: Sleep Apnea Endocrine Medical History: Diabetes Type II, Hypothyroidism, Other Musculoskelatal History: Osteoarthritis GI Medical History: Diverticulosis, GERD Pyscho-Social History: Anxiety, Depression Reproductive Disorders: Other Comment: Emily's, B TKR (09/2011 and 02/2012), heel spur removal (unsure of which side, 06/2011), - Past Surgical History Past Surgical History: Yes Neuro Surgical History: No Pertinent History Respiratory Surgery: No Pertinent History GI Surgical History: Cholecystectomy, Colon Resection, Hernia Repair Musculskeletal Surgical Hx: Orthopedic Surgery Female Surgical History: Other Other Surgical History: bilat total knee, heel spur removed, cholecystectomy with complication of bowel fistula, colon resection x2, abdominal hernia repair x7 - Social History Smoking Status: Never smoker Exposure to second hand smoke: No Alcohol: None Drug Use: none - Social Determinants of Health Will the patient participate in the screening: Unable to obtain Do you worry about a steady place to live?: No Do you have any problems with any of the following?: No known problems In the past 12 months,have you had to go without utilities?: No Have you or anyone in your house had to go without enough: No Transportation Issues: No Has anyone in your support network made you feel unsafe?: No Does the patient want assistance with any of the above?: No Medications & Allergies Home Medications: Home Medication List ARIPiprazole [Aripiprazole] 1 tab PO DAILY 12/19/23 [History Confirmed 12/19/23] Chlorthalidone 1 tab PO DAILY 12/19/23 [History Confirmed 12/19/23] Cholecalciferol (Vitd3)/Vit K2 [K2-D3 5000 90-125 Mcg Capsule] 1 tab PO DAILY 12/19/23 [History Confirmed 12/19/23] Duloxetine HCl 1 tab PO DAILY 12/19/23 [History Confirmed 12/19/23] Duloxetine HCl 30 mg [Cymbalta 30 MG Capsule] 1 tab PO DAILY 12/19/23 [History Confirmed 12/19/23] Insulin Glargine,Hum.rec.anlog [Basaglar Kwikpen U-100] 70 units SQ DAILY 12/19/23 [History Confirmed 12/19/23] Insulin Lispro [Humalog] 30 units SQ AC 12/19/23 [History Confirmed 12/19/23] Levothyroxine Sodium 1 tab PO DAILY 12/19/23 [History Confirmed 12/19/23] Magnesium Oxide [Magnesium] 1 tab PO DAILY 12/19/23 [History Confirmed 12/19/23] Meclizine HCl 25 mg [Antivert 25 mg] 1 tab PO TID PRN 12/19/23 [History Confirmed 12/19/23] Oxybutynin Chloride [Oxybutynin Chloride ER] 1 tab PO DAILY 12/19/23 [History Confirmed 12/19/23] PANTOPRAZOLE 40 mg Tablet [Protonix 40MG Tablet] 1 tab PO DAILY 12/19/23 [History Confirmed 12/19/23] Semaglutide [Ozempic] 1.5 mg SQ WEEKLY 12/19/23 [History Confirmed 12/19/23] Simvastatin 20Mg [Zocor 20Mg] 1 tab PO HS 12/19/23 [History Confirmed 12/19/23] Verapamil HCl [Verapamil ER] 1 tab PO DAILY 12/19/23 [History Confirmed 12/19/23] Allergies/Adverse Reactions: Allergies Allergy/AdvReac Type Severity Reaction Status Date / Time latex Allergy Mild redness Verified 12/19/23 10:21 levofloxacin [From Levaquin] AdvReac Mild Itching Verified 12/19/23 10:21 Exam - Vitals Vital Signs: Vital Signs - 24 hr Temp Pulse Resp BP Pulse Ox 12/20/23 16:00 97.4 F 85 16 102/56 92 L 12/20/23 11:10 96.8 F 92 H 16 104/59 93 L 12/20/23 07:55 97.4 F 101 H 18 129/74 96 12/20/23 07:02 93 L 12/20/23 06:53 97 12/20/23 03:53 97.1 F 103 H 19 118/68 97 12/20/23 00:00 96.8 F 105 H 20 115/74 97 12/19/23 20:00 96.8 F 107 H 18 116/69 95 12/19/23 19:50 93 L SpO2: 92 Results Vital Signs: Vital Signs - 24 hr Temp Pulse Resp BP Pulse Ox 12/20/23 16:00 97.4 F 85 16 102/56 92 L 12/20/23 11:10 96.8 F 92 H 16 104/59 93 L 12/20/23 07:55 97.4 F 101 H 18 129/74 96 12/20/23 07:02 93 L 12/20/23 06:53 97 12/20/23 03:53 97.1 F 103 H 19 118/68 97 12/20/23 00:00 96.8 F 105 H 20 115/74 97 12/19/23 20:00 96.8 F 107 H 18 116/69 95 12/19/23 19:50 93 L Pain Assessment - Last Documented Pain Intensity 4 Pain Scale Used 0-10 Pain Scale Intake and Output: Intake & Output 12/18/23 12/19/23 12/20/23 12/21/23 11:59 11:59 11:59 11:59 Intake Total 520 240 Output Total 350 Balance 170 240 Weight 94.2 kg 93.5 kg LAB: I have reviewed the Labs in [employer]. Radiology Exams: Radiology Procedures Category Date Time Status BARIUM SWALLOW ESOPHOGRAM Routine Exams 12/20/23 10:11 Completed CHEST WITH CONTRAST [CT] Stat Exams 12/19/23 10:13 Completed ECHO W/2D AND DOPPLER [US] Routine Exams 12/20/23 07:26 Taken HEAD WITHOUT CONTRAST [CT] Stat Exams 12/19/23 10:15 Completed TRANSTHORACIC ECHOCARDIOGRAM 12/20/2023: Technically difficult study with high gain settings. 1. Mildly dilated right atrium. Other chamber sizes are normal. 2. Mild concentric left ventricular hypertrophy. 3. Normal left ventricular systolic function without obvious focal wall motion abnormalities. Estimated EF 55%. 4. Mild diastolic dysfunction. 5. Normal right ventricular systolic function. 6. Moderate aortic sclerosis without stenosis. 7. Doppler: No significant valvular regurgitation. 8. Normal PA systolic pressure. 9. Mildly elevated right atrial pressure. 10. No pericardial effusion. ESOPHOGRAM 12/20/2023: Negative esophagram Chest CT with contrast 12/19/2023: 1. Negative pulmonary embolus. No acute cardiopulmonary abnormalities. 2. Chronic findings including arteriosclerotic disease, fatty liver, chronic bony findings, and old granulomatous disease. Head CT without contrast 12/19/2023: Nonacute senile brain . Multi-Disciplinary Progress Notes: Multi-Disciplinary Progress Notes 12/20/23 10:26 Speech Therapy Note by Dayne(Magdi#[id number] DISCUSSED WITH PATIENT. PATIENT C/O THROAT FEELING CLOSED OFF DAILY WITH INTAKE. PATIENT STATED SHE HAS TO BEAT ON HER CHEST TO GET FOOD TO GO DOWN. ST RECOMMENDS COMPLETION OF BARIUM SWALLOW ESOPHAGRAM BE COMPLETED FOR FUNCTIONAL ASSESSMENT OF ESOPHAGEAL MOTILITY. MBS MAY BE NEEDED IN THE FUTURE. MS HENRIK, CCC/STAGE SET DESIGNER Initialized on 12/20/23 10:26 - END OF NOTE 12/19/23 19:51 Respiratory Note by Windy Puri AT THIS TIME, PATIENT DOES NOT WANT TO WEAR CPAP. INSTRUCTED TO CALL IF SHE CHANGES HER MIND. Initialized on 12/19/23 19:51 - END OF NOTE Assessment & Plan (1) Elevated troponin Current Visit: Yes Status: Acute Assessment & Plan: Secondary to hypoxemia at presentation related to her aspiration/choking on meat. Further cardiac testing is ot required in the hospital. Ok for discharge tomorrow from the cardiac standpoint. Code(s): R79.89 - OTHER SPECIFIED ABNORMAL FINDINGS OF BLOOD CHEMISTRY (2) CAD (coronary artery disease), nikolski coronary artery Current Visit: Yes Status: Chronic Assessment & Plan: Diagnosed on cardiac cath not requiring an intervention many years ago. 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 The anterior wall was suboptimally seen on ECHO. Recommend Ms. Guerin follow-up with her business objects analyst, Dr. Greg Lowe, for an outpt. nuclear stress. Continue her home cardiac regimen. Code(s): I25.10 - ATHSCL HEART DISEASE OF [place] CORONARY ARTERY W/O ANG PCTRS (3) Aspiration into airway Current Visit: Yes Status: Acute Assessment & Plan: Occurred while eating breakfast yesterday. CPR initiated by at home. No neurologic sequelae Code(s): T17.908A - UNSP FB IN RESP TRACT, PART UNSP CAUSING OTH INJURY, INIT (4) Musculoskeletal chest pain Current Visit: Yes Status: Acute Assessment & Plan: Reproducible on exam. Secondary to yesterday's CPR. Treat with analgesics prn Code(s): R07.89 - OTHER CHEST PAIN (5) Lower extremity edema Current Visit: Yes Status: Chronic Assessment & Plan: No significant edema currently. Suspect it represents venous insufficiency. Code(s): R60.0 - LOCALIZED EDEMA - Encounter Encounter: "The entirety of this encounter was performed via Telemedicine using audio and visual " Case discussed with Yennifer Zimmerman earlier today. Sharad Arenas MD [facility] [phone]
[2023-12-20] MEDS: PROTONIX 40 MG IV IV SCH (22:16)
[2023-12-21 05:23] LABS: Hematocrit 36.8 % (34.1-44.9); Hemoglobin 11.9 g/dL (11.2-15.7); Mean Corpuscular Hemoglobin 28.5 pg (25.6-32.2); Mean Corpuscular Hgb Concent. 32.3 g/dL (32.2-35.5); Mean Platelet Volume 8.6 fL (9.4-12.3); Platelet Count 312 x10^3/uL (182-369); Red Blood Count 4.18 x10^6/uL (3.93-5.22); Red Cell Distribution Width 13.2 % (11.7-14.4); White Blood Count 13.1 x10^3/uL (3.98-10.04)
[2023-12-21 05:57] LABS: ALBUMIN 3.5 g/dL (3.5-5.0); ANION GAP 8.7 MEQ/L (5-15); BILIRUBIN,TOTAL 0.3 mg/dL (0.2-1.3); Calcium 9.4 mg/dL (8.4-10.2); Creatinine 1 0.54 mg/dL (0.52-1.04); EST GLOMERULAR FILTRATION RATE 98.4 ML/MIN; Total Protein 6.8 g/dL (6.3-8.2)
[2023-12-21 08:05] VITALS: BP 131/78; PULSE 103; RESP 24; TEMP 97.4
--- NOTE | 2023-12-21 10:55 | PCM.DS ---
Discharge Summary Date of Admission: 12/19/23 17:01 Date of Discharge: 12/21/23 Admitting Physician: WISAM LARSON MD Consults: Consults on Case 12/19/23 17:35 Consult Cardiology ROUTINE Primary Care Provider: LAWRENCE ORELLANA NP Allergies Allergies latex Allergy (Mild, Verified 12/19/23 10:21) redness levofloxacin [From Levaquin] Adverse Reaction (Mild, Verified 12/19/23 10:21) Itching Hospital Summary - Hospital Course Hospital Course: 12/20/23 is a 73 year old female with PMHX of TIA, angina, congenital heart defect, hyperlipidemia, HTN, Sleep apnea, Type II DM, hypothyroidism, OA, Diverticulitis, depression, anxiety, GERD, and Colon resection. Per ER records pt was brought in unresponsive and CPR provided. She aspirated on some meat this morning. They were able to remove the meat in the ER and sxs improved and she became more responsive. Lactic acid elevated in ER and Septic. She was started on antibiotics and IV fluids. Glucose was elevated and insulin given in ER. Will continue IV antibiotics and consult cardiology, ST. Will order echo as 2nd troponin is elevated. She reports she had a right shoulder steroid injection yesterday. She reports she was told she has a R rotator cuff tear. This is the cause for her elevated glucose today she reports. She is c/o recent BLLE pitting edema with unknown cause. She reports having an EGD 2 months ago for GI bleeding and is scheduled for colonoscopy with Dr. Marcus in Jan. She has had no recent dark or bloody stools. Protonix BID started. She is c/o rib pain from CPR- [place] and tylenol ordered PRN for pain. She denies CP, SOB, abd. pain, N/V/D. / Azael - social media manager 12/21/23 Pt resting in bed. She states she feels better today. She is awaiting cardiology consult, Echo, ST eval, barium swallow series, and PT eval today. WBC improved to 18.7. Glucose controlled. Will stop antibiotics. Chest CT clear, and lung sounds are clear. IV lasix x1 gave for 3+ pitting edema of BLLE today. She has continued lower rib pain but otherwise feels good. She denies, CP, SOB, Abd. pain, N/V/D. 12/22/23 Pt resting in the chair she is wanting to go home today and feels much better. Discussed swallow eval with ST today and she recommends Modified barium swallow OP and to continue a soft diet. This was ordered OP to be done at [facility] per pt request. She is tolerating a soft diet well. She refused her CPAP last night and was placed on oxygen. She is not requiring oxygen this AM. She denies any further concerns at this time. - Vitals & Intake/Output Vital Signs: Vital Signs Temperature 97.4 F 12/21/23 08:00 Pulse Rate 103 H 12/21/23 08:00 Respiratory Rate 24 12/21/23 08:00 Blood Pressure 131/78 12/21/23 08:00 O2 Sat by Pulse Oximetry 98 12/21/23 08:00 Intake & Output: Intake & Output 12/18/23 12/19/23 12/20/23 12/21/23 11:59 11:59 11:59 11:59 Intake Total 520 760 Output Total 350 Balance 170 760 Weight 94.2 kg 93.5 kg - Lab Result Diagrams: 12/21/23 05:00 12/21/23 05:00 Lab Results-Last 24 Hrs: Lab Results-Last 24 Hours 12/19/23 12/20/23 12/20/23 Range/Units 13:32 10:57 16:05 WBC (3.98-10.04) x10^3/uL RBC (3.93-5.22) x10^6/uL Hgb (11.2-15.7) g/dL Hct (34.1-44.9) % MCV (79.4-94.8) fL MCH (25.6-32.2) pg MCHC (32.2-35.5) g/dL RDW (11.7-14.4) % Plt Count (182-369) x10^3/uL MPV (9.4-12.3) fL Smear Path Review Sodium (135-145) mmol/L Potassium (3.5-5.1) mmol/L Chloride (98-107) mmol/L Carbon Dioxide (22-30) mmol/L Anion Gap (5-15) MEQ/L BUN (7-17) mg/dL Creatinine (0.52-1.04) mg/dL Estimated GFR ML/MIN Glucose (74-106) mg/dL POC Glucometer 266 H 137 H (74 to 106) mg/dL Calcium (8.4-10.2) mg/dL Total Bilirubin (0.2-1.3) mg/dL AST (14-36) U/L ALT (0-35) U/L Alkaline Phosphatase (38-126) U/L Serum Total Protein (6.3-8.2) g/dL Albumin (3.5-5.0) g/dL 12/20/23 12/21/23 12/21/23 Range/Units 21:56 05:00 05:00 WBC 13.1 H (3.98-10.04) x10^3/uL RBC 4.18 (3.93-5.22) x10^6/uL Hgb 11.9 (11.2-15.7) g/dL Hct 36.8 (34.1-44.9) % MCV 88.0 (79.4-94.8) fL MCH 28.5 (25.6-32.2) pg MCHC 32.3 (32.2-35.5) g/dL RDW 13.2 (11.7-14.4) % Plt Count 312 (182-369) x10^3/uL MPV 8.6 L (9.4-12.3) fL Smear Path Review Sodium 135 (135-145) mmol/L Potassium 4.0 (3.5-5.1) mmol/L Chloride 97 L (98-107) mmol/L Carbon Dioxide 33 H (22-30) mmol/L Anion Gap 8.7 (5-15) MEQ/L BUN 13 (7-17) mg/dL Creatinine 0.54 (0.52-1.04) mg/dL Estimated GFR 98.4 ML/MIN Glucose 155 H (74-106) mg/dL POC Glucometer 180 H (74 to 106) mg/dL Calcium 9.4 (8.4-10.2) mg/dL Total Bilirubin 0.30 (0.2-1.3) mg/dL AST 28 (14-36) U/L ALT 32 (0-35) U/L Alkaline Phosphatase 108 (38-126) U/L Serum Total Protein 6.8 (6.3-8.2) g/dL Albumin 3.5 (3.5-5.0) g/dL 12/21/23 Range/Units 07:20 WBC (3.98-10.04) x10^3/uL RBC (3.93-5.22) x10^6/uL Hgb (11.2-15.7) g/dL Hct (34.1-44.9) % MCV (79.4-94.8) fL MCH (25.6-32.2) pg MCHC (32.2-35.5) g/dL RDW (11.7-14.4) % Plt Count (182-369) x10^3/uL MPV (9.4-12.3) fL Smear Path Review Sodium (135-145) mmol/L Potassium (3.5-5.1) mmol/L Chloride (98-107) mmol/L Carbon Dioxide (22-30) mmol/L Anion Gap (5-15) MEQ/L BUN (7-17) mg/dL Creatinine (0.52-1.04) mg/dL Estimated GFR ML/MIN Glucose (74-106) mg/dL POC Glucometer 129 H (74 to 106) mg/dL Calcium (8.4-10.2) mg/dL Total Bilirubin (0.2-1.3) mg/dL AST (14-36) U/L ALT (0-35) U/L Alkaline Phosphatase (38-126) U/L Serum Total Protein (6.3-8.2) g/dL Albumin (3.5-5.0) g/dL Micro Results-Entire Visit: Microbiology 12/19/23 12:04 Urine Culture - Final Catherized NO GROWTH 12/19/23 10:30 Blood Culture - Preliminary Blood Accuchecks Date 12/21/23 Date 12/20/23 Date 12/20/23 Time 08:04 - Radiology Exams Ordered Rad Exams-Entire Visit: Radiology Procedures Category Date Time Status BARIUM SWALLOW ESOPHOGRAM Routine Exams 12/20/23 10:11 Completed CHEST WITH CONTRAST [CT] Stat Exams 12/19/23 10:13 Completed ECHO W/2D AND DOPPLER [US] Routine Exams 12/20/23 07:26 Taken HEAD WITHOUT CONTRAST [CT] Stat Exams 12/19/23 10:15 Completed - Procedures and Test Procedures and Tests throughout Hospitalization: Therapy Orders & Screens 12/19/23 17:33 Speech Therapy Eval & Treat [ST Eval & Treat (MD Order)] .as ordered Comment: Physician Instructions: Reason For Exam: Evaluate: Yes Treat: Yes Reason for Eval: aspiration on meat on admission Diagnosis: Apiration 12/19/23 17:33 Oxygen Nasal Cannula 2 lpm Comment: Respiratory Therapy Consult ONCE Comment: Reason For Exam: 12/19/23 18:00 EKG ROUTINE Comment: 12/19/23 18:19 RT Miscellaneous Order ROUTINE Comment: Physician Instructions: Reason For Exam: May use home Cpap at [facility] or ours Diagnosis: aspiration 12/19/23 18:21 PT Eval & Treat ( Order) ONCE Reason for Eval:: weakness post CPR Diagnosis: aspiration 12/20/23 18:00 Incentive Spirometry TID Comment: Diagnosis: aspiration Discharge Exam General Appearance: no apparent distress, alert Neurologic Exam: alert, oriented x 3, cooperative, normal mood/affect, nml cerebellar function, sensation nml, No motor deficits Eye Exam: PERRL, EOMI, eyes nml inspection Ears, Nose, Throat Exam: normal ENT inspection, pharynx normal, moist mucous membranes Neck Exam: normal inspection, non-tender, supple, full range of motion Respiratory Exam: normal breath sounds, lungs clear, No respiratory distress Cardiovascular Exam: regular rate/rhythm, normal heart sounds Gastrointestinal/Abdomen Exam: soft, No tenderness, No mass Pelvic Exam: deferred Rectal Exam: deferred Back Exam: normal inspection, normal range of motion, No CVA tenderness, No vertebral tenderness Extremity Exam: normal inspection, normal range of motion Skin Exam: normal color, warm, dry Final Diagnosis/Problem List - Final Discharge Diagnosis/Problem (1) Sepsis Current Visit: Yes Status: Acute (2) Hyperglycemia due to diabetes mellitus Current Visit: Yes Status: Acute Code(s): E11.65 - TYPE 2 DIABETES MELLITUS WITH HYPERGLYCEMIA (3) Aspiration into airway Current Visit: Yes Status: Acute Code(s): T17.908A - UNSP FB IN RESP TRACT, PART UNSP CAUSING OTH INJURY, INIT (4) Elevated troponin Current Visit: Yes Status: Acute Code(s): R79.89 - OTHER SPECIFIED ABNORMAL FINDINGS OF BLOOD CHEMISTRY (5) Leukocytosis Current Visit: Yes Status: Acute Code(s): D72.829 - ELEVATED WHITE BLOOD CELL COUNT, UNSPECIFIED (6) Morbid obesity with BMI of 40.0-44.9, adult Current Visit: Yes Status: Acute Code(s): E66.01 - MORBID (SEVERE) OBESITY DUE TO EXCESS CALORIES; Z68.41 - BODY MASS INDEX [BMI] 40.0-44.9, ADULT (7) Pitting edema Current Visit: Yes Status: Acute Assessment & Plan: (1) Sepsis Current Visit: Yes Status: Acute Assessment & Plan: - Lactic acid elevated in ER 2L IV fluid bolus gave - elevated HR, resp - elevated WBC - + aspiration/ CPR on arrival to ER - antibiotics - tele - repeat LA at 1900- 1.7 (2) Hyperglycemia due to diabetes mellitus Current Visit: Yes Status: Acute Assessment & Plan: - also 2:2 steriod injection of right shoulder yesterday OP - accuchecks ac/hs - Continue home insulin dosing and s/s - Carb const diet. / soft diet - A1C 8.0- uncontrolled Code(s): E11.65 - TYPE 2 DIABETES MELLITUS WITH HYPERGLYCEMIA (3) Aspiration into airway Current Visit: Yes Status: Acute Assessment & Plan: - meat removed from airway in ER - ST eval - soft diet, carb consistent - post CPR - tylenol, norco PRN pain - CT head and Chest reviewed no concerning findings 12/19 - ST eval and barium swallow series- Recs per ST keep on soft diet and schedule modified barium swallow OP - modified barium swallow OP ordered to be done @ [facility] Code(s): T17.908A - UNSP FB IN RESP TRACT, PART UNSP CAUSING OTH INJURY, INIT (4) Elevated troponin Current Visit: Yes Status: Acute Assessment & Plan: - Trend trops, 2nd trop elevated - cardiology consult - 2:2 CPR - Echo - EF 55% - F/U with cardiology OP Code(s): R79.89 - OTHER SPECIFIED ABNORMAL FINDINGS OF BLOOD CHEMISTRY (5) Leukocytosis Current Visit: Yes Status: Acute Assessment & Plan: - Continue Antibiotics - CT chest negative for acute concern - WBC 27.5 trend 12/19 - WBC 18.7 - antibiotics stopped 12/20 - WBC 13.1 Code(s): D72.829 - ELEVATED WHITE BLOOD CELL COUNT, UNSPECIFIED (6) Morbid obesity with BMI of 40.0-44.9, adult Current Visit: Yes Status: Acute Assessment & Plan: - Advised ADA diet and exercise control - PT eval for home needs Code(s): E66.01 - MORBID (SEVERE) OBESITY DUE TO EXCESS CALORIES; Z68.41 - BODY MASS INDEX [BMI] 40.0-44.9, ADULT (7) Pitting edema Current Visit: Yes Status: Acute Assessment & Plan: - BLLE - echo - SCD's - lasix X1 - K+ replacement - purewick - TEDS 12/20 - edema resolved Code(s): R60.9 - EDEMA, UNSPECIFIED Code(s): R60.9 - EDEMA, UNSPECIFIED - Discharge Discharge Date: 12/21/23 Disposition: Home, Self-Care Condition: Stable Prescriptions: Continue Simvastatin 20Mg [Zocor 20Mg] 1 tab PO HS Levothyroxine Sodium 1 tab PO DAILY Oxybutynin Chloride [Oxybutynin Chloride ER] 1 tab PO DAILY Verapamil HCl [Verapamil ER] 1 tab PO DAILY Duloxetine HCl 30 mg [Cymbalta 30 MG Capsule] 1 tab PO DAILY Duloxetine HCl 1 tab PO DAILY ARIPiprazole [Aripiprazole] 1 tab PO DAILY PANTOPRAZOLE 40 mg Tablet [Protonix 40MG Tablet] 1 tab PO DAILY Cholecalciferol (Vitd3)/Vit K2 [K2-D3 5000 90-125 Mcg Capsule] 1 tab PO DAILY Magnesium Oxide [Magnesium] 1 tab PO DAILY Chlorthalidone 1 tab PO DAILY Semaglutide [Ozempic] 1.5 mg SQ WEEKLY Insulin Glargine,Hum.rec.anlog [Basaglar Kwikpen U-100] 70 units SQ DAILY Meclizine HCl 25 mg [Antivert 25 mg] 1 tab PO TID PRN PRN Reason: Dizziness Insulin Lispro [Humalog] 30 units SQ AC Follow up with: DENNISE MORRIS [CONSULTING PHYSICIAN] - 12/26/23 12:30 pm LAWRENCE ORELLANA NP [Primary Care Provider] - 12/27/23 10:00 am ( )
[2023-12-21 18:27] VITALS: O2SAT 95
== END 2023-12-21 11:35 | disposition home or self-care (01) ==
LOC: ED 10:00 → MED SURG 17:01
PROVIDERS: ADMIT Internal Medicine; ATTEND Internal Medicine
DX: A41.9 Sepsis, unspecified organism (principal); E11.65 Type 2 diabetes mellitus with hyperglycemia; T17.908A Unspecified foreign body in respiratory tract, part unspecified causing other injury, initial encounter; R79.89 Other specified abnormal findings of blood chemistry; D72.829 Elevated white blood cell count, unspecified; E66.01 Morbid (severe) obesity due to excess calories; Z68.41 Body mass index [BMI] 40.0-44.9, adult; R60.0 Localized edema; E78.5 Hyperlipidemia, unspecified; I10 Essential (primary) hypertension; G47.30 Sleep apnea, unspecified; Z86.73 Personal history of transient ischemic attack (TIA), and cerebral infarction without residual deficits; Z79.899 Other long term (current) drug therapy
CPT/HCPCS: 0241U; 36000; 36415; 70450; 71260; 74220; 80048; 80053; 81001; 82150; 82805; 82947; 83036; 83605; 83690; 83735; 83880; 84484; 85025; 85027; 87040; 87086; 92610; 93005; 93041; 93306; 94762; 96365; 96367; 96374; 96376; 97161; 99285; 99291; Q3014; 93268; J0456; J0696; J1815; J1817; J1940; A9270-GY; G0378

== ENCOUNTER 2024-01-25 16:28 | Emergency (ER) | payer MEDICARE ==
[2024-01-25] MEDS ORDERED: DUONEB 0.5-3 MG/3 ml Neb IH ONE ×2 (16:41→21:15)
[2024-01-25] MEDS: DUONEB 0.5-3 MG/3 ml Neb IH ONE ×2 (16:45→21:23)
--- NOTE | 2024-01-25 16:46 | ERPHSYRPT ---
- History of Present Illness Time Seen by Provider: 01/25/24 16:28 Source: patient, EMS Exam Limitations: no limitations Physician History: Pt was brought in by EMS choking on a piece of meat(pork) & EMS stated pt was blue. After I removed the pork with Scott forceps pt denied chest pain, abdominal pain, fever, vomiting. Allergies/Adverse Reactions: latex Allergy (Mild, Verified 01/25/24 16:56) redness levofloxacin [From Levaquin] Adverse Reaction (Mild, Verified 01/25/24 16:56) Itching Home Medications: ARIPiprazole [Aripiprazole] 1 tab PO DAILY 12/19/23 [History] Chlorthalidone 1 tab PO DAILY 12/19/23 [History] Cholecalciferol (Vitd3)/Vit K2 [K2-D3 5000 90-125 Mcg Capsule] 1 tab PO DAILY 12/19/23 [History] Duloxetine HCl 1 tab PO DAILY 12/19/23 [History] Duloxetine HCl 30 mg [Cymbalta 30 MG Capsule] 1 tab PO DAILY 12/19/23 [History] Insulin Glargine,Hum.rec.anlog [Basaglar Kwikpen U-100] 70 units SQ DAILY 12/19/23 [History] Insulin Lispro [Humalog] 30 units SQ AC 12/19/23 [History] Levothyroxine Sodium 1 tab PO DAILY 12/19/23 [History] Magnesium Oxide [Magnesium] 1 tab PO DAILY 12/19/23 [History] Meclizine HCl 25 mg [Antivert 25 mg] 1 tab PO TID PRN 12/19/23 [History] Oxybutynin Chloride [Oxybutynin Chloride ER] 1 tab PO DAILY 12/19/23 [History] PANTOPRAZOLE 40 mg Tablet [Protonix 40MG Tablet] 1 tab PO DAILY 12/19/23 [History] Semaglutide [Ozempic] 1.5 mg SQ WEEKLY 12/19/23 [History] Simvastatin 20Mg [Zocor 20Mg] 1 tab PO HS 12/19/23 [History] Verapamil HCl [Verapamil ER] 1 tab PO DAILY 12/19/23 [History] Hx Tetanus, Diphtheria Vaccination/Date Given: No Hx Influenza Vaccination/Date Given: No Hx Pneumococcal Vaccination/Date Given: No Travel Risk - Emerging Infectious Disease Are you exhibiting symptoms associated with any current EIDs: No - Review of Systems Constitutional: No Fever Respiratory: Dyspnea Cardiac: No Chest Pain Abdominal/Gastrointestinal: No Abdominal Pain, No Vomiting Skin: Other (cyanotic per EMS) - Past Medical History Pertinent Past Medical History: Yes Neurological History: TIA ENT History: No Pertinent History Cardiac History: Angina, High Cholesterol, Hypertension, Other Respiratory History: Sleep Apnea Endocrine Medical History: Diabetes Type II, Hypothyroidism, Other Musculoskeletal History: Osteoarthritis GI Medical History: Diverticulosis, GERD Psycho-Social History: Anxiety, Depression Female Reproductive Disorders: Other Other Medical History: Emily's, B TKR (09/2011 and 02/2012), heel spur removal (unsure of which side, 06/2011), - Past Surgical History Past Surgical History: Yes Neuro Surgical History: No Pertinent History Respiratory: No Pertinent History Gastrointestinal: Cholecystectomy, Colon Resection, Hernia Repair Musculoskeletal: Orthopedic Surgery Female Surgical History: Other Other Surgical History: bilat total knee, heel spur removed, cholecystectomy with complication of bowel fistula, colon resection x2, abdominal hernia repair x7 - Social History Smoking Status: Never smoker Exposure to second hand smoke: No Drug Use: none Patient Lives Alone: No - Social Determinants of Health Will the patient participate in the screening: Unable to obtain Do you worry about a steady place to live?: No In the past 12 months,have you had to go without utilities?: No Transportation Issues: No Has anyone in your support network made you feel unsafe?: No Have you or anyone in your house had to go without enough: No - Nursing Vital Signs Nursing Vital Signs: Initial Vital Signs Temperature 97.5 F 01/25/24 16:34 Pulse Rate 128 H 01/25/24 16:34 Respiratory Rate 24 01/25/24 16:34 Blood Pressure 191/91 01/25/24 16:34 O2 Sat by Pulse Oximetry 95 01/25/24 16:34 Pain Scale Pain Intensity 0 - Physical Exam General Appearance: alert Eye Exam: PERRL/EOMI Ears, Nose, Throat Exam: No normal pharynx (I removed a piece of pork from pt's trachea with Scott forceps) Neck Exam: normal inspection Respiratory Exam: lungs clear Cardiovascular/Chest Exam: tachycardia Abdominal/Gastrointestinal Exam: normal bowel sounds Peripheral Pulses Exam: dorsalis-pedis (R): 1+, dorsalis-pedis (L): 1+ Neurologic Exam: alert, cooperative Skin Exam: warm, dry SpO2 Interpretation: O2 applied SpO2: 95 O2 Delivery: Non-rebreather - Course EKG Interpreted by Me: RATE ([id number]), Sinus Tach, Left Clarkrange Deviation, Other (QTc = 443) - Radiology Exams Chest X-ray Interpretation: Discussed w/ radiologist (See report) - CT Exams Chest CT Interpretation: Discussed w/radiologist (New soft tissue foreign body distal right main bronchus and right middle/right lower lobes. Subsequent right middle lobe postobstructive atelectasis. See rest of report.) Ordered Tests: Active Orders 24 hr Category Date Time Status EKG-ER Only STAT Care 01/25/24 20:37 Active Oxygen-ED Only NON-REBREATHER 100% Care 01/25/24 20:30 Active CHEST 1 VIEW (PORTABLE) Stat Exams 01/25/24 16:31 Completed CHEST WITHOUT CONTRAST [CT] Stat Exams 01/25/24 16:53 Completed ABG [ARTERIAL BLOOD GASES] Urgent Lab 01/25/24 16:51 Completed BLOOD CULTURE Stat Lab 01/25/24 20:48 Received CBC W DIFF Stat Lab 01/25/24 16:45 Completed CMP Stat Lab 01/25/24 16:45 Completed CULTURE,SPUTUM Stat Lab 01/25/24 20:30 Ordered Manual Differential NC Stat Lab 01/25/24 16:45 Completed TROPONIN Stat Lab 01/25/24 16:45 Completed Respiratory Therapy Assessment DAILY RT 01/25/24 16:44 Completed Respiratory Therapy Assessment DAILY RT 01/25/24 21:24 Active Standby STAT RT 01/25/24 16:56 Active Medication Summary Discontinued Medications Generic Name Dose Route Start Last Admin Trade Name Freq PRN Reason Stop Dose Admin Albuterol/Ipratropium Confirm 01/25/24 16:41 Ipratropium/Albuterol Sulfate 3 Ml Ampul.Neb Administered 01/25/24 16:42 Dose 3 ml IH .STK-MED ONE Albuterol/Ipratropium 3 ml 01/25/24 16:44 01/25/24 16:45 Ipratropium/Albuterol Sulfate 3 Ml Ampul.Neb IH 01/25/24 16:45 3 ml STAT ONE Administration Albuterol/Ipratropium 3 ml 01/25/24 20:30 01/25/24 21:23 Ipratropium/Albuterol Sulfate 3 Ml Ampul.Neb IH 01/25/24 20:31 3 ml STAT ONE Administration Albuterol/Ipratropium Confirm 01/25/24 21:15 Ipratropium/Albuterol Sulfate 3 Ml Ampul.Neb Administered 01/25/24 21:16 Dose 3 ml IH .STK-MED ONE Ceftriaxone Sodium 1 gm in 100 mls @ 200 mls/hr 01/25/24 20:30 01/25/24 21:43 Rocephin 1 Gm / 100 Ml Nacl IV 01/25/24 20:59 Infused STAT ONE Infusion Azithromycin 500 mg in 250 mls @ 250 mls/hr 01/25/24 20:30 01/25/24 21:24 Zithromax 500 Mg/ 250 Ml Nacl Premix IV 01/25/24 21:29 250 mls/hr STAT STA 250 mls/hr Administration Ceftriaxone Sodium Confirm 01/25/24 20:39 Rocephin 1 Gm / 100 Ml Nacl Administered 01/25/24 20:40 Dose 1 gm in 100 mls @ ud IV .STK-MED ONE Azithromycin Confirm 01/25/24 21:21 Zithromax 500 Mg/ 250 Ml Nacl Premix Administered 01/25/24 21:22 Dose 500 mg in 250 mls @ ud IV .STK-MED ONE Lab/Rad Data: Laboratory Result Diagrams 01/25/24 16:45 01/25/24 16:45 Laboratory Results 01/25/24 01/25/24 01/25/24 Range/Units 16:51 16:45 16:45 WBC 20.2 H (3.98-10.04) x10^3/uL RBC 4.90 (3.93-5.22) x10^6/uL Hgb 13.7 (11.2-15.7) g/dL Hct 43.9 (34.1-44.9) % MCV 89.6 (79.4-94.8) fL MCH 28.0 (25.6-32.2) pg MCHC 31.2 L (32.2-35.5) g/dL RDW 13.2 (11.7-14.4) % Plt Count 433 H (182-369) x10^3/uL MPV 8.5 L (9.4-12.3) fL Segmented Neutrophils 68 (34.0-71.1) % Lymphocytes (Manual) 28 (19.3-51.7) % Monocytes (Manual) 3 L (4.7-12.5) % Myelocytes 1 % Platelet Estimate NORMAL (NORMAL) RBC Morphology NORMAL Puncture Site RIGHT RADIAL pCO2 42 (35-45) mmHg pO2 72 L (75-100) mmHg Base Excess -6.8 L (-2.0-2.0) O2 Saturation 93.7 L (94-100) g/dF ABG pH 7.28 L (7.35-7.45) ABG HCO3 19.7 L (22-28) ABG O2 Sat (Measured) 94.4 L (95-100) % Kwan Test y A-a Gradient 589 a/A Ratio 0.11 Hemoglobin 13.5 Carboxyhemoglobin 0.6 (0.0-6.9) % THgb Methemoglobin 0.1 L (1.4-1.5) % Temperature 37.0 C POC O2 Flow Rate 100 % Sodium 137 (135-145) mmol/L Potassium 3.8 3.6 (3.5-5.1) mmol/L Chloride 98 (98-107) mmol/L Carbon Dioxide 19 L (22-30) mmol/L Anion Gap 24.2 H (5-15) MEQ/L BUN 13 (7-17) mg/dL Creatinine 0.61 (0.52-1.04) mg/dL Estimated GFR 95.5 ML/MIN Glucose 374 H (74-106) mg/dL Calcium 9.7 (8.4-10.2) mg/dL Total Bilirubin 0.40 (0.2-1.3) mg/dL AST 68 H (14-36) U/L ALT 60 H (0-35) U/L Alkaline Phosphatase 175 H (38-126) U/L Troponin I 0.013 (0.000-0.033) ng/mL Serum Total Protein 7.9 (6.3-8.2) g/dL Albumin 4.2 (3.5-5.0) g/dL - Progress Progress: improved Will see patient in: other (Dr. Sykes(Respiratory Therapy Assistant)([id number]) accepted pt for transfer to [facility] ER.) Counseled pt/family regarding: lab results, diagnosis, rad results Medical Desision Making - Diagnostic Testing Diagnostic test were ordered, analyzed, and reviewed by me: Yes Radiological Interpretation: Discussed w/ radiologist - Departure Departure Disposition: Transfer Clinical Impression: Aspiration of foreign body in respiratory tract, Dyspnea, Leukocytosis Condition: Stable Critical Care Time: Yes Critical Care Time(excluding separately billable procedures): Critical 30-74 mins Referrals: LAWRENCE ORELLANA MANAGER STUDY [Primary Care Provider] - Follow up/PCP as directed
[2024-01-25 16:55] LABS: A-aADO2 589; ABG HEMOGLOBIN 13.5; ABG POTASSIUM 3.8 (3.5-5.1); ABG SITE RIGHT RADIAL; ALLEN TEST OK? y; ARTERIAL BLD GAS O2 SATURATION 94.4 % (95-100); ARTERIAL BLOOD GAS BASE EXCESS -6.8 (-2.0-2.0); ARTERIAL BLOOD GAS FIO2 100 %; ARTERIAL BLOOD GAS PCO2 42 mmHg (35-45); ARTERIAL BLOOD GAS PO2 72 mmHg (75-100); ARTERIAL BLOOD GAS pH 7.28 (7.35-7.45); CARBOXYHEMOGLOBIN 0.6 % THgb (0.0-6.9); HCO3- 19.7 (22-28); HGB O2 SAT 93.7 g/dF (94-100); Methhemoglobin 0.1 % (1.4-1.5); paO2 pAO1 0.11
--- NOTE | 2024-01-25 17:01 | XRAY ---
Indication: Choking. Comparison: None Portable chest demonstrates normal heart and lungs with incidental left suprahilar and left upper lung calcified granulomas. Bony thorax intact with osteopenia and mild degenerative changes.
[2024-01-25 17:08] LABS: Hematocrit 43.9 % (34.1-44.9); Hemoglobin 13.7 g/dL (11.2-15.7); Mean Cell Volume 89.6 fL (79.4-94.8); Mean Corpuscular Hgb Concent. 31.2 g/dL (32.2-35.5); Mean Platelet Volume 8.5 fL (9.4-12.3); Platelet Count 433 x10^3/uL (182-369); Red Cell Distribution Width 13.2 % (11.7-14.4); White Blood Count 20.2 x10^3/uL (3.98-10.04)
[2024-01-25 17:34] LABS: ALBUMIN 4.2 g/dL (3.5-5.0); ANION GAP 24.2 MEQ/L (5-15); BILIRUBIN,TOTAL 0.4 mg/dL (0.2-1.3); Calcium 9.7 mg/dL (8.4-10.2); Creatinine 1 0.61 mg/dL (0.52-1.04); EST GLOMERULAR FILTRATION RATE 95.5 ML/MIN; Potassium 3.6 mmol/L (3.5-5.1); TROPONIN 0.013 ng/mL (0.000-0.033); Total Protein 7.9 g/dL (6.3-8.2)
[2024-01-25 18:17] LABS: Lymphocytes 28 % (19.3-51.7); Monocyte 3 % (4.7-12.5); Myelocyte 1 %; Neutrophils 68 % (34.0-71.1); Platelet Estimate NORMAL (NORMAL); Total Cells Counted 100
--- NOTE | 2024-01-25 19:38 | XRAY ---
Indication: Dyspnea. Choked on food. Multiple contiguous axial images obtained through the chest without contrast. Comparison: December 19, 2023 New irregular soft tissue foreign body in the distal right main bronchus extending into right middle lobe and lesser degree right lower lobe. Subsequent moderate right middle lobe postobstructive atelectasis. Remaining lungs demonstrates mild bilateral atelectasis with stable left upper lobe chunky calcified granuloma. No effusion or pneumothorax. Heart not enlarged again with mitral valve calcifications. Aorta again minimally arteriosclerotic without aneurysm. Stable small mediastinal/left hilar calcified nodes. No pathologically distal lymphadenopathy. Bony thorax intact again with osteopenia, moderate degenerative changes throughout spine, and old right rib fractures. New finding healing left anterior lateral 3-6 rib fractures Limited upper abdomen again demonstrates fatty liver. Impression: 1. New soft tissue foreign body distal right main bronchus and right middle/right lower lobes. Subsequent right middle lobe postobstructive atelectasis. 2. Again chronic findings including mitral valve calcifications, arteriosclerotic disease, fatty liver, chronic bony findings, and old granulomatous disease.
[2024-01-25] MEDS ORDERED: ROCEPHIN 1 GM / 100 ML NaCl 1 GM/100 ML IVPB IV ONE (20:39)
[2024-01-25] MEDS: ROCEPHIN 1 GM / 100 ML NaCl 1 GM/100 ML IVPB IV ONE (20:42)
[2024-01-25 21:14] VITALS: TEMP 98.2
[2024-01-25] MEDS ORDERED: Zithromax 500 MG/ 250 ML NaCl Premix 500 MG/250 ML IVPB IV ONE (21:21)
[2024-01-25] MEDS: Zithromax 500 MG/ 250 ML NaCl Premix 500 MG/250 ML IVPB IV STA (21:24)
[2024-01-25 23:50] VITALS: O2SAT 93
[2024-01-26 01:18] VITALS: BP 109/64; PULSE 107; RESP 15
== END 2024-01-26 01:37 | disposition short-term general hospital (02) ==
LOC: ED 16:28
DX: T17.228A Food in pharynx causing other injury, initial encounter (principal); I10 Essential (primary) hypertension; E78.5 Hyperlipidemia, unspecified; E11.9 Type 2 diabetes mellitus without complications; D72.829 Elevated white blood cell count, unspecified; R06.00 Dyspnea, unspecified; Z79.899 Other long term (current) drug therapy
CPT/HCPCS: 36000; 36415; 36600; 71045; 71250; 80053; 82375; 82803; 84484; 85025; 87040; 93005; 93041; 94640; 94760; 94799; 96365; 96367; 99285; 99291; J0456; J0696; A9270-GY